=== PATIENT | female | born 1940 | race Caucasian/White ===

== ENCOUNTER 2016-10-31 16:42 | Observation (INO) | payer MEDICARE ==
[2016-10-31 20:33] LABS: ABSOLUTE EOSINOPHILS # (AUTO) 0.3 10^3/uL (0.0-0.6); ABSOLUTE LYMPHOCYTES (AUTO) 3.5 10^3/uL (0.5-4.7); ABSOLUTE MONOCYTES (AUTO) 1.1 10^3/uL (0.1-1.4); ABSOLUTE NEUT (AUTO) 3.1 10^3/uL (1.7-8.2); BASOPHILS % (AUTO) 0.4 % (0-2); EOSINOPHILS % (AUTO) 3.3 % (0-6); HEMATOCRIT 37.6 % (36.0-47.0); HEMOGLOBIN 12.4 g/dL (12.0-15.5); HGB HCT DIFFERENCE -0.4; MEAN CORPUSCULAR HEMOGLOBIN 28.2 pg (27.0-33.4); MEAN CORPUSCULAR HGB CONC 33.1 g/dL (32.0-36.0); MEAN CORPUSCULAR VOLUME 85 fl (80-97); MONOCYTES % (AUTO) 14.1 % (3-13); RED BLOOD COUNT 4.41 10^6/uL (3.72-5.28); SEGMENTED NEUTROPHILS % (AUTO) 38.2 % (42-78); WHITE BLOOD COUNT 8.1 10^3/uL (4.0-10.5)
[2016-10-31] MEDS: MORPHINE SULFATE 10 MG/ML INJ IV PRN (20:34)
[2016-10-31] MEDS: 1/2 NORMAL SALINE 1,000 ML IV PRN (20:35)
[2016-10-31 20:50] LABS: ALANINE AMINOTRANSFERASE 15 U/L (9-52); ALBUMIN 4.5 g/dL (3.5-5.0); ALKALINE PHOSPHATASE 76 U/L (38-126); ANION GAP 9 (5-19); ASPARTATE AMINO TRANSFERASE 15 U/L (14-36); BILIRUBIN,TOTAL 0.7 mg/dL (0.2-1.3); BLOOD UREA NITROGEN 18 mg/dL (7-20); CALCIUM 10.4 mg/dL (8.4-10.2); CARBON DIOXIDE 29 mmol/L (22-30); CHLORIDE 102 mmol/L (98-107); CREATININE RESULT 0.89 mg/dL (0.52-1.25); GLUCOSE 98 mg/dL (75-110); POTASSIUM 4.1 mmol/L (3.6-5.0); SODIUM 139.9 mmol/L (137-145); TOTAL PROTEIN 7.6 g/dL (6.3-8.2)
[2016-10-31 21:31] LABS: THYROID STIMULATING HORMONE 0.27 uIU/mL (0.47-4.68)
[2016-11-01] MEDS: MORPHINE SULFATE 10 MG/ML INJ IV PRN ×4 (00:05→14:39)
[2016-11-01] MEDS: 1/2 NORMAL SALINE 1,000 ML IV PRN ×2 (05:43→05:45)
[2016-11-01] MEDS ORDERED: ONDANSETRON HCL 8 MG TABLET PO PRN (07:31)
[2016-11-01] MEDS ORDERED: LORAZEPAM 1 MG TABLET PO PRN (07:31)
[2016-11-01] MEDS ORDERED: VALSARTAN 80 MG TABLET PO SCH (08:00)
[2016-11-01] MEDS: ENOXAPARIN SODIUM INJ 40 MG/0.4 ML DISP.SYRIN SUBCUT SCH (08:04)
[2016-11-01] MEDS ORDERED: GABAPENTIN 300 MG CAPSULE PO ONE (09:00)
[2016-11-01] MEDS ORDERED: LANSOPRAZOLE 30 MG TAB.RAP.DR PO ONE (09:00)
[2016-11-01] MEDS: CLOPIDOGREL BISULFATE 75 MG TABLET PO SCH (10:15)
[2016-11-01] MEDS: VALSARTAN 40 MG TABLET PO SCH (10:15)
[2016-11-01] MEDS: CARVEDILOL 12.5 MG TABLET PO SCH ×2 (10:17→21:32)
[2016-11-01] MEDS: CITALOPRAM HYDROBROMIDE 20 MG TABLET PO SCH (10:17)
[2016-11-01 10:36] LABS: HEMATOCRIT 36.2 % (36.0-47.0); HEMOGLOBIN 12.1 g/dL (12.0-15.5); HGB HCT DIFFERENCE 0.1; MEAN CORPUSCULAR HEMOGLOBIN 28.5 pg (27.0-33.4); MEAN CORPUSCULAR HGB CONC 33.4 g/dL (32.0-36.0); MEAN CORPUSCULAR VOLUME 85 fl (80-97); RED BLOOD COUNT 4.24 10^6/uL (3.72-5.28); RED CELL DISTRIBUTION WIDTH 14.2 % (11.5-14.0); WHITE BLOOD COUNT 7.4 10^3/uL (4.0-10.5)
[2016-11-01 10:55] LABS: PROTHROMBIN TIME 14.1 SEC (11.4-15.4)
[2016-11-01 10:56] LABS: PARTIAL THROMBOPLASTIN TIME 31.5 SEC (23.5-35.8)
[2016-11-01 11:00] LABS: CREATININE RESULT 0.79 mg/dL (0.52-1.25)
[2016-11-01 13:10] LABS: APPEARANCE,URINE SLIGHTLY-CLOUDY; BILIRUBIN,URINE NEGATIVE (NEGATIVE); GLUCOSE, URINE NEGATIVE (NEGATIVE); KETONES,URINE NEGATIVE (NEGATIVE); LEUKOCYTE ESTERASE,URINE LARGE (NEGATIVE); NITRITE,URINE POSITIVE (NEGATIVE); PROTEIN,URINE NEGATIVE (NEGATIVE); UROBILINOGEN,URINE NEGATIVE mg/dL (<2.0)
--- NOTE | 2016-11-01 13:36 | PDOC CONSULTATION ---
Consultation Consult Date: 11/01/16 Attending physician:: TABBY DELGADILLO Consult reason:: Epigastric pain, history of peptic ulcer in the past History of Present Illness Admission Date/PCP: 10/31/16 22:06 SINA ABDUL MD History of Present Illness: DAVID BELTRAN is a 76 year old female patient is complaining of epigastric pain, started about 5 days ago no new medication denies any NSAIDS use patient had EGD done in the past did have peptic ulcer disease associated with nausea but no vomiting patient denies any melena there is no early satiety no hematemesis denies any coffee ground emesis multiple previous admissions and procedures reviewed Past Medical History Cardiac Medical History: Reports: Congestive Heart Failure, Coronary Artery Disease - CABG 99, STENT 05, Myocardial Infarction - chest pain , Hyperlipidema , Hypertension Pulmonary Medical History: Reports: Chronic Obstructive Pulmonary Disease (COPD ) - [place] PRN , Pneumonia - more than 5 years ago Denies: Asthma, Bronchitis, Tuberculosis Neurological Medical History: Denies: Seizures Endocrine Medical History: Reports: Diabetes Mellitus Type 1, Diabetes Mellitus Type 2 Malignancy Medical History: Reports: Breast Cancer GI Medical History: Reports: Gastroesophageal Reflux Disease Musculoskeltal Medical History: Reports: Arthritis - generalized - right wrist Psychiatric Medical History: Reports: Depression Hematology: Denies: Anemia Past Surgical History Past Surgical History: Reports: Appendectomy, Cholecystectomy, Coronary Artery Bypass Graft, Coronary Stent, Hysterectomy Denies: Pacemaker Social History Smoking Status: Never Smoker Frequency of Alcohol Use: None Hx Recreational Drug Use: No Drugs: None Hx Prescription Drug Abuse: No Family History Family History: Reviewed & Not Pertinent, DM Parental Family History Reviewed: Yes Children Family History Reviewed: Unknown Sibling(s) Family History Reviewed.: Unknown Medication/Allergy Home Medications: Citalopram Hydrobromide [Celexa 20 mg Tablet] 20 mg PO DAILY 11/01/16 Furosemide [Lasix] 40 mg PO DAILY 11/01/16 Gabapentin [Neurontin 300 mg Capsule] 300 mg PO Q8 11/01/16 Linagliptin [Tradjenta] 5 mg PO DAILY 11/01/16 Ondansetron HCl [Zofran 8 mg Tablet] 8 mg PO TIDP PRN 11/01/16 Oxycodone HCl/Acetaminophen [Percocet 10-325 Mg Tablet] 1 tab PO Q4HP PRN Valsartan [Diovan 80 mg Tablet] 80 mg PO DAILY 11/01/16 Allergies/Adverse Reactions: azithromycin [Azithromycin] Allergy (Mild, Verified 05/25/16 08:47) Hives nalbuphine HCl [From Nubain] Allergy (Mild, Verified 05/25/16 08:47) Hives nitrofurantoin macrocrystalline [From Macrodantin] Allergy (Mild, Verified 05/25 08:47) Hives duloxetine HCl [From Cymbalta] Adverse Reaction (Verified 05/25/16 08:47) Change in behavior Review of Systems Constitutional: ABSENT: fever(s), headache(s), night sweats, weakness Eyes: ABSENT: visual disturbances Ears: ABSENT: hearing changes Nose, Mouth, and Throat: ABSENT: mouth pain Cardiovascular: ABSENT: edema, orthropnea Respiratory: ABSENT: dyspnea, hemoptysis Genitourinary: ABSENT: dysuria, hematuria Musculoskeletal: ABSENT: deformity Integumentary: ABSENT: pruritus Neurological: ABSENT: syncope, tingling, vertigo, weakness Psychiatric: ABSENT: homidical ideation, suicidal ideation Endocrine: ABSENT: heat intolerance, polydipsia, polyphagia, polyuria Hematologic/Lymphatic: ABSENT: easy bruising Physical Exam Vital Signs: Temp Pulse Resp BP Pulse Ox 97.6 F 58 L 12 107/51 L 100 11/01/16 11:52 11/01/16 11:52 11/01/16 11:52 11/01/16 11:52 11/01/16 11:52 Intake & Output 10/31/16 11/01/16 11/02/16 06:59 06:59 06:59 Weight 75.5 kg General appearance: PRESENT: no acute distress, well-developed, well-nourished Head exam: PRESENT: atraumatic, normocephalic Eye exam: PRESENT: EOMI, PERRLA. ABSENT: nystagmus, periorbital swelling, scleral icterus Mouth exam: PRESENT: moist Throat exam: ABSENT: tonsillar exudate, tonsillogmegaly Neck exam: ABSENT: meningismus, tenderness, thyromegaly, tracheal deviation Respiratory exam: PRESENT: symmetrical, unlabored. ABSENT: chest wall tenderness, retraction, tachypnea Cardiovascular exam: PRESENT: RRR, +S1, +S2. ABSENT: rubs GI/Abdominal exam: PRESENT: soft, tenderness. ABSENT: Mcelroy's sign, rebound, rigid Extremities exam: ABSENT: joint swelling Musculoskeletal exam: PRESENT: full ROM Neurological exam: PRESENT: oriented to time, oriented to situation, reflexes normal, CN II-XII grossly intact Skin exam: PRESENT: normal color. ABSENT: mottled, pallor, petechiae, urticaria , vesicles Results Laboratory Results: 11/01/16 09:50 11/01/16 09:50 10/31/16 10/31/16 10/31/16 19:50 19:50 19:50 WBC 8.1 RBC 4.41 Hgb 12.4 Hct 37.6 MCV 85 MCH 28.2 MCHC 33.1 RDW 14.0 Plt Count 198 Seg Neutrophils % 38.2 L Lymphocytes % 44.0 Monocytes % 14.1 H Eosinophils % 3.3 Basophils % 0.4 Absolute Neutrophils 3.1 Absolute Lymphocytes 3.5 Absolute Monocytes 1.1 Absolute Eosinophils 0.3 Absolute Basophils 0.0 Sodium 139.9 Potassium 4.1 Chloride 102 Carbon Dioxide 29 Anion Gap 9 BUN 18 Creatinine 0.89 Est GFR ( Amer) > 60 Est GFR (Non-Af Amer) > 60 Glucose 98 Calcium 10.4 H Total Bilirubin 0.7 AST 15 ALT 15 Alkaline Phosphatase 76 Total Protein 7.6 Albumin 4.5 TSH 0.27 L Free T4 1.22 Urine Color Urine Appearance Urine pH Ur Specific [place] Urine Protein Urine Glucose (UA) Urine Ketones Urine Blood Urine Nitrite Ur Leukocyte Esterase Urine WBC (Auto) Urine RBC (Auto) 11/01/16 11/01/16 11/01/16 09:50 09:50 12:45 WBC 7.4 RBC 4.24 Hgb 12.1 Hct 36.2 MCV 85 MCH 28.5 MCHC 33.4 RDW 14.2 H Plt Count 190 Seg Neutrophils % Lymphocytes % Monocytes % Eosinophils % Basophils % Absolute Neutrophils Absolute Lymphocytes Absolute Monocytes Absolute Eosinophils Absolute Basophils Sodium Potassium Chloride Carbon Dioxide Anion Gap BUN Creatinine 0.79 Est GFR ( Amer) > 60 Est GFR (Non-Af Amer) > 60 Glucose Calcium Total Bilirubin AST ALT Alkaline Phosphatase Total Protein Albumin TSH Free T4 Urine Color YELLOW Urine Appearance SLIGHTLY-CLOUDY Urine pH 5.0 Ur Specific [place] 1.010 Urine Protein NEGATIVE Urine Glucose (UA) NEGATIVE Urine Ketones NEGATIVE Urine Blood SMALL H Urine Nitrite POSITIVE H Ur Leukocyte Esterase LARGE H Urine WBC (Auto) 73 Urine RBC (Auto) 0 Impressions: Abdomen/Pelvis CT 10/31/16 00:00 IMPRESSION: No evidence for obstruction. No acute inflammatory changes. Assessment & Plan - Diagnosis (1) Abdominal pain Plan: patient with noted gastric ulcer in the past has not had a follow up to document healing will need repeat EGD she will need Propofol sedation Risks, benefits and alternatives are explained to the patient in detail Further recommendations to follow if negative, she may need repeat colonoscopy - Time Time Spent: 50 to 70 Minutes
[2016-11-01] MEDS: GABAPENTIN 300 MG CAPSULE PO SCH ×2 (14:05→21:32)
--- NOTE | 2016-11-01 18:26 | PDOC H&P ---
History of Present Illness Admission Date/PCP: 10/31/16 22:06 SINA ABDUL MD History of Present Illness: Patient is 76-year-old female with multiple comorbid conditions, she came to the office complaining of abdominal pain, vomiting recently eaten food,she was accompanied to the office by the son,she was admitted directly from the office into the hospital because of concern for dehydration and for evaluation of symptoms. She stated that she has not had any food in couple of days. Past Medical History Cardiac Medical History: Reports: Congestive Heart Failure, Coronary Artery Disease - CABG 99, STENT 05, Myocardial Infarction - chest pain , Hyperlipidema , Hypertension Pulmonary Medical History: Reports: Chronic Obstructive Pulmonary Disease (COPD ) - [place] PRN , Pneumonia - more than 5 years ago Endocrine Medical History: Reports: Diabetes Mellitus Type 2 Malignancy Medical History: Reports: Breast Cancer GI Medical History: Reports: Gastroesophageal Reflux Disease Musculoskeltal Medical History: Reports: Arthritis - generalized - right wrist Psychiatric Medical History: Reports: Depression Past Surgical History Past Surgical History: Reports: Appendectomy, Cholecystectomy, Coronary Artery Bypass Graft, Coronary Stent, Hysterectomy Denies: Pacemaker Social History Smoking Status: Never Smoker Frequency of Alcohol Use: None Hx Recreational Drug Use: No Drugs: None Hx Prescription Drug Abuse: No Family History Family History: Reviewed & Not Pertinent, DM Parental Family History Reviewed: Yes Children Family History Reviewed: Yes Sibling(s) Family History Reviewed.: Yes Medication/Allergy Home Medications: Citalopram Hydrobromide [Celexa 20 mg Tablet] 20 mg PO DAILY 11/01/16 Furosemide [Lasix] 40 mg PO DAILY 11/01/16 Gabapentin [Neurontin 300 mg Capsule] 300 mg PO Q8 11/01/16 Linagliptin [Tradjenta] 5 mg PO DAILY 11/01/16 Ondansetron HCl [Zofran 8 mg Tablet] 8 mg PO TIDP PRN 11/01/16 Oxycodone HCl/Acetaminophen [Percocet 10-325 mg Tablet] 1 tab PO Q4HP PRN Valsartan [Diovan 80 mg Tablet] 80 mg PO DAILY 11/01/16 Allergies/Adverse Reactions: azithromycin [Azithromycin] Allergy (Mild, Verified 05/25/16 08:47) Hives nalbuphine HCl [From Nubain] Allergy (Mild, Verified 05/25/16 08:47) Hives nitrofurantoin macrocrystalline [From Macrodantin] Allergy (Mild, Verified 05/25 08:47) Hives duloxetine HCl [From Cymbalta] Adverse Reaction (Verified 05/25/16 08:47) Change in behavior Review of Systems Constitutional: PRESENT: fatigue Ears: ABSENT: hearing changes Cardiovascular: ABSENT: chest pain, dyspnea on exertion, edema, orthropnea, palpitations Respiratory: ABSENT: cough, hemoptysis Gastrointestinal: PRESENT: abdominal pain, bloating, nausea, vomiting Genitourinary: ABSENT: dysuria, hematuria Musculoskeletal: ABSENT: joint swelling Integumentary: ABSENT: rash, wounds Neurological: PRESENT: confusion, numbness, tingling Psychiatric: PRESENT: anxiety Endocrine: ABSENT: cold intolerance, heat intolerance, menstrual abnormalities, polydipsia, polyuria Hematologic/Lymphatic: ABSENT: easy bleeding, easy bruising, lymphadenopathy Physical Exam Vital Signs: Temp Pulse Resp BP Pulse Ox 97.6 F 58 L 12 107/51 L 100 11/01/16 11:52 11/01/16 14:00 11/01/16 11:52 11/01/16 11:52 11/01/16 11:52 Intake & Output 10/31/16 11/01/16 11/02/16 06:59 06:59 06:59 Intake Total 613 Output Total 500 Balance 113 Weight 75.5 kg General appearance: PRESENT: mild distress Head exam: PRESENT: atraumatic, normocephalic Eye exam: PRESENT: conjunctiva pink, EOMI, PERRLA Mouth exam: PRESENT: dry mucosa Neck exam: PRESENT: full ROM Respiratory exam: PRESENT: clear to auscultation jaimee Cardiovascular exam: PRESENT: RRR, +S1, +S2 GI/Abdominal exam: PRESENT: normal bowel sounds, soft, tenderness Rectal exam: PRESENT: deferred Neurological exam: PRESENT: alert, awake, oriented to person, oriented to place , oriented to time, oriented to situation, CN II-XII grossly intact Psychiatric exam: PRESENT: appropriate affect, normal mood Skin exam: PRESENT: dry, intact, warm Results Laboratory Results: 11/01/16 09:50 11/01/16 09:50 10/31/16 10/31/16 10/31/16 19:50 19:50 19:50 WBC 8.1 RBC 4.41 Hgb 12.4 Hct 37.6 MCV 85 MCH 28.2 MCHC 33.1 RDW 14.0 Plt Count 198 Seg Neutrophils % 38.2 L Lymphocytes % 44.0 Monocytes % 14.1 H Eosinophils % 3.3 Basophils % 0.4 Absolute Neutrophils 3.1 Absolute Lymphocytes 3.5 Absolute Monocytes 1.1 Absolute Eosinophils 0.3 Absolute Basophils 0.0 Sodium 139.9 Potassium 4.1 Chloride 102 Carbon Dioxide 29 Anion Gap 9 BUN 18 Creatinine 0.89 Est GFR ( Amer) > 60 Est GFR (Non-Af Amer) > 60 Glucose 98 Calcium 10.4 H Total Bilirubin 0.7 AST 15 ALT 15 Alkaline Phosphatase 76 Total Protein 7.6 Albumin 4.5 TSH 0.27 L Free T4 1.22 Urine Color Urine Appearance Urine pH Ur Specific [place] Urine Protein Urine Glucose (UA) Urine Ketones Urine Blood Urine Nitrite Ur Leukocyte Esterase Urine WBC (Auto) Urine RBC (Auto) 11/01/16 11/01/16 11/01/16 09:50 09:50 12:45 WBC 7.4 RBC 4.24 Hgb 12.1 Hct 36.2 MCV 85 MCH 28.5 MCHC 33.4 RDW 14.2 H Plt Count 190 Seg Neutrophils % Lymphocytes % Monocytes % Eosinophils % Basophils % Absolute Neutrophils Absolute Lymphocytes Absolute Monocytes Absolute Eosinophils Absolute Basophils Sodium Potassium Chloride Carbon Dioxide Anion Gap BUN Creatinine 0.79 Est GFR ( Amer) > 60 Est GFR (Non-Af Amer) > 60 Glucose Calcium Total Bilirubin AST ALT Alkaline Phosphatase Total Protein Albumin TSH Free T4 Urine Color YELLOW Urine Appearance SLIGHTLY-CLOUDY Urine pH 5.0 Ur Specific [place] 1.010 Urine Protein NEGATIVE Urine Glucose (UA) NEGATIVE Urine Ketones NEGATIVE Urine Blood SMALL H Urine Nitrite POSITIVE H Ur Leukocyte Esterase LARGE H Urine WBC (Auto) 73 Urine RBC (Auto) 0 Impressions: Abdomen/Pelvis CT 10/31/16 00:00 IMPRESSION: No evidence for obstruction. No acute inflammatory changes. Assessment & Plan - Diagnosis (1) Abdominal pain Qualifiers: Abdominal location: epigastric Qualified Code(s): R10.13 - Epigastric pain Is this a current diagnosis for this admission?: YesPlan: The differential diagnosis is quite long pain is in the upper abdomen and it tends to radiate to involve the whole abdomen (2) Coronary artery disease Qualifiers: Coronary Disease-Associated Artery/Lesion type: [place] artery [place] vs. transplanted heart: [place] heart Associated angina: without angina Qualified Code(s): I25.10 - Atherosclerotic heart disease of [place] coronary artery without angina pectoris Is this a current diagnosis for this admission?: Yes (3) Diabetes mellitus Qualifiers: Diabetes mellitus type: type 2 Diabetes mellitus complication status: with neurologic complications Diabetes mellitus complication detail: with polyneuropathy Diabetes mellitus custodial insulin use: with intermediate school teacher use Qualified Code(s): E11.42 - Type 2 diabetes mellitus with diabetic polyneuropathy; Z79.4 - alf (current) use of insulin Is this a current diagnosis for this admission?: Yes (4) Intractable vomiting Qualifiers: Vomiting type: unspecified Nausea presence: with nausea Qualified Code(s): R11.2 - Nausea with vomiting, unspecified Is this a current diagnosis for this admission?: Yes
--- NOTE | 2016-11-01 18:57 | PDOC PROGRESS REPORT ---
Subjective Progress Note for:: 11/01/16 Subjective:: Patient was seen by the bedside she continues to complains of abdominal pain, she said the morphine is not effective, she was seen by Dr. abbott medication tech Physical Exam Vital Signs: Temp Pulse Resp BP Pulse Ox 97.6 F 58 L 12 107/51 L 100 11/01/16 11:52 11/01/16 14:00 11/01/16 11:52 11/01/16 11:52 11/01/16 11:52 Intake & Output 10/31/16 11/01/16 11/02/16 06:59 06:59 06:59 Intake Total 613 Output Total 500 Balance 113 Weight 75.5 kg General appearance: PRESENT: mild distress Eye exam: PRESENT: PERRLA Cardiovascular exam: PRESENT: +S1, +S2 GI/Abdominal exam: PRESENT: tenderness Results Laboratory Results: 11/01/16 09:50 11/01/16 09:50 10/31/16 10/31/16 10/31/16 19:50 19:50 19:50 WBC 8.1 RBC 4.41 Hgb 12.4 Hct 37.6 MCV 85 MCH 28.2 MCHC 33.1 RDW 14.0 Plt Count 198 Seg Neutrophils % 38.2 L Lymphocytes % 44.0 Monocytes % 14.1 H Eosinophils % 3.3 Basophils % 0.4 Absolute Neutrophils 3.1 Absolute Lymphocytes 3.5 Absolute Monocytes 1.1 Absolute Eosinophils 0.3 Absolute Basophils 0.0 Sodium 139.9 Potassium 4.1 Chloride 102 Carbon Dioxide 29 Anion Gap 9 BUN 18 Creatinine 0.89 Est GFR ( Amer) > 60 Est GFR (Non-Af Amer) > 60 Glucose 98 Calcium 10.4 H Total Bilirubin 0.7 AST 15 ALT 15 Alkaline Phosphatase 76 Total Protein 7.6 Albumin 4.5 TSH 0.27 L Free T4 1.22 Urine Color Urine Appearance Urine pH Ur Specific [place] Urine Protein Urine Glucose (UA) Urine Ketones Urine Blood Urine Nitrite Ur Leukocyte Esterase Urine WBC (Auto) Urine RBC (Auto) 11/01/16 11/01/16 11/01/16 09:50 09:50 12:45 WBC 7.4 RBC 4.24 Hgb 12.1 Hct 36.2 MCV 85 MCH 28.5 MCHC 33.4 RDW 14.2 H Plt Count 190 Seg Neutrophils % Lymphocytes % Monocytes % Eosinophils % Basophils % Absolute Neutrophils Absolute Lymphocytes Absolute Monocytes Absolute Eosinophils Absolute Basophils Sodium Potassium Chloride Carbon Dioxide Anion Gap BUN Creatinine 0.79 Est GFR ( Amer) > 60 Est GFR (Non-Af Amer) > 60 Glucose Calcium Total Bilirubin AST ALT Alkaline Phosphatase Total Protein Albumin TSH Free T4 Urine Color YELLOW Urine Appearance SLIGHTLY-CLOUDY Urine pH 5.0 Ur Specific [place] 1.010 Urine Protein NEGATIVE Urine Glucose (UA) NEGATIVE Urine Ketones NEGATIVE Urine Blood SMALL H Urine Nitrite POSITIVE H Ur Leukocyte Esterase LARGE H Urine WBC (Auto) 73 Urine RBC (Auto) 0 Impressions: Abdomen/Pelvis CT 10/31/16 00:00 IMPRESSION: No evidence for obstruction. No acute inflammatory changes. Assessment & Plan - Diagnosis (1) Abdominal pain Qualifiers: Abdominal location: epigastric Qualified Code(s): R10.13 - Epigastric pain Is this a current diagnosis for this admission?: Yes (2) Coronary artery disease Qualifiers: Coronary Disease-Associated Artery/Lesion type: [place] artery [place] vs. transplanted heart: [place] heart Associated angina: without angina Qualified Code(s): I25.10 - Atherosclerotic heart disease of [place] coronary artery without angina pectoris Is this a current diagnosis for this admission?: Yes (3) Diabetes mellitus Qualifiers: Diabetes mellitus type: type 2 Diabetes mellitus complication status: with neurologic complications Diabetes mellitus complication detail: with polyneuropathy Diabetes mellitus terminologist insulin use: with terminologist use Qualified Code(s): E11.42 - Type 2 diabetes mellitus with diabetic polyneuropathy; Z79.4 - terminologist (current) use of insulin Is this a current diagnosis for this admission?: Yes (4) Intractable vomiting Qualifiers: Vomiting type: unspecified Nausea presence: with nausea Qualified Code(s): R11.2 - Nausea with vomiting, unspecified Is this a current diagnosis for this admission?: Yes
[2016-11-01] MEDS: HYDROMORPHONE HCL INJ/PF 2 MG/ML AMPULE IV PRN (20:09)
[2016-11-02] MEDS: HYDROMORPHONE HCL INJ/PF 2 MG/ML AMPULE IV PRN ×7 (01:45→21:54)
[2016-11-02] MEDS: GABAPENTIN 300 MG CAPSULE PO SCH ×3 (05:36→21:54)
[2016-11-02] MEDS: LANSOPRAZOLE 30 MG TAB.RAP.DR PO SCH (05:36)
[2016-11-02] MEDS ORDERED: PROPOFOL INJ 200 MG/20 ML VIAL IV ONE (09:29)
[2016-11-02] MEDS: 1/2 NORMAL SALINE 1,000 ML IV PRN (09:29)
[2016-11-02] MEDS: ENOXAPARIN SODIUM INJ 40 MG/0.4 ML DISP.SYRIN SUBCUT SCH (09:30)
[2016-11-02] MEDS ORDERED: DIPHENHYDRAMINE HCL 50 MG/ML VIAL IV PRN (09:59)
[2016-11-02] MEDS ORDERED: FENTANYL CITRATE INJ/PF 100 MCG/2 ML AMPUL IV PRN ×2 (09:59)
[2016-11-02] MEDS ORDERED: PROMETHAZINE HCL INJ 25 MG/1 ML VIAL IV PRN (09:59)
[2016-11-02] MEDS: CLOPIDOGREL BISULFATE 75 MG TABLET PO SCH (10:11)
[2016-11-02] MEDS: VALSARTAN 40 MG TABLET PO SCH (10:11)
[2016-11-02] MEDS: CITALOPRAM HYDROBROMIDE 20 MG TABLET PO SCH (10:11)
[2016-11-02] MEDS: CARVEDILOL 12.5 MG TABLET PO SCH ×2 (10:11→21:56)
--- NOTE | 2016-11-02 10:30 | Operative Report ---
Operative Report DATE OF SURGERY: 11/02/16 Operative Report: The risks benefits and alternatives of the procedure explained to the patient in detail and informed consent is obtained that GIF Olympus video scope was inserted into the patient's mouth and hypopharynx the esophagus is identified intubated and insufflated the scope was then advanced through the esophagus stomach and duodenum retroflexion maneuver is done the esophagus stomach and first and second portions of the duodenum examined PREOPERATIVE DIAGNOSIS: Abdominal pain POSTOPERATIVE DIAGNOSIS: Gastritis status post biopsy OPERATION: EGD with biopsy SURGEON: TABBY DELGADILLO ANESTHESIA: LMAC TISSUE REMOVED OR ALTERED: Gastric specimens rule out Helicobacter pylori COMPLICATIONS: None. ESTIMATED BLOOD LOSS: none. INTRAOPERATIVE FINDINGS: None. PROCEDURE: Patient tolerated the procedure well. No immediate postprocedure complications are noted. Patient sent back to her room in good condition. Resume previous diet Resume previous activity level ,continue PPI therapy Follow-up on biopsy
[2016-11-02] MEDS: NORMAL SALINE 1000 ML 1,000 ML IV PRN (18:33)
--- NOTE | 2016-11-02 18:50 | PDOC PROGRESS REPORT ---
Subjective Progress Note for:: 11/02/16 Subjective:: Patient continues to have abdominal pain, upper endoscopy done today and it showed gastritis Physical Exam Vital Signs: Temp Pulse Resp BP Pulse Ox 98.8 F 53 L 18 103/46 L 97 11/02/16 12:10 11/02/16 14:00 11/02/16 12:10 11/02/16 12:10 11/02/16 12:10 Intake & Output 11/01/16 11/02/16 11/03/16 06:59 06:59 06:59 Intake Total 1383 3350 Output Total 920 Balance 463 3350 Weight 75.5 kg 78.2 kg General appearance: PRESENT: no acute distress Eye exam: PRESENT: PERRLA Respiratory exam: PRESENT: clear to auscultation jaimee Cardiovascular exam: PRESENT: +S1, +S2 GI/Abdominal exam: PRESENT: tenderness Neurological exam: PRESENT: alert, CN II-XII grossly intact Results Laboratory Results: 11/01/16 09:50 11/01/16 09:50 Impressions: Abdomen/Pelvis CT 10/31/16 00:00 IMPRESSION: No evidence for obstruction. No acute inflammatory changes. Assessment & Plan - Diagnosis (1) Abdominal pain Qualifiers: Abdominal location: epigastric Qualified Code(s): R10.13 - Epigastric pain Is this a current diagnosis for this admission?: YesPlan: CTA of the abdomen is ordered to rule out ischemic bowel (2) Coronary artery disease Qualifiers: Coronary Disease-Associated Artery/Lesion type: [place] artery [place] vs. 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
[2016-11-02 19:58] LABS: CREATINE KINASE MB 0.48 ng/mL (<4.55); TROPONIN I < 0.012 ng/mL
[2016-11-03] MEDS: HYDROMORPHONE HCL INJ/PF 2 MG/ML AMPULE IV PRN ×6 (00:56→22:46)
[2016-11-03] MEDS: LANSOPRAZOLE 30 MG TAB.RAP.DR PO SCH (05:34)
[2016-11-03] MEDS: GABAPENTIN 300 MG CAPSULE PO SCH ×3 (05:34→21:13)
[2016-11-03] MEDS: ENOXAPARIN SODIUM INJ 40 MG/0.4 ML DISP.SYRIN SUBCUT SCH (08:09)
[2016-11-03 08:43] LABS: CREATINE KINASE MB 0.46 ng/mL (<4.55)
[2016-11-03 08:50] LABS: TROPONIN I < 0.012 ng/mL
[2016-11-03] MEDS: CARVEDILOL 12.5 MG TABLET PO SCH ×2 (09:21→21:17)
[2016-11-03] MEDS: CLOPIDOGREL BISULFATE 75 MG TABLET PO SCH (09:21)
[2016-11-03] MEDS: CITALOPRAM HYDROBROMIDE 20 MG TABLET PO SCH (09:21)
[2016-11-03] MEDS: VALSARTAN 40 MG TABLET PO SCH (09:22)
[2016-11-03] MEDS: NORMAL SALINE 1000 ML 1,000 ML IV PRN (10:02)
[2016-11-03] MEDS ORDERED: LORAZEPAM 1 MG TABLET PO PRN (13:29)
[2016-11-03] MEDS ORDERED: ONDANSETRON HCL 8 MG TABLET PO PRN (13:33)
--- NOTE | 2016-11-03 13:53 | PDOC PROGRESS REPORT ---
Subjective Progress Note for:: 11/03/16 Subjective:: patient underwent EGD yesterday and has had multiple procedures in the past however no objective finding patient is undergoing CTA to rule out mesenteric ischemia patient denies any nausea and vomiting and has periods where she does not have any discomfort this is somewhat unusual for mesenteric ischemia Mesenteric ischemia is also associated with significant weight loss patient denies any blood in her stools biopsies are negative Physical Exam Vital Signs: Temp Pulse Resp BP Pulse Ox 98.0 F 52 L 16 102/48 L 100 11/03/16 12:40 11/03/16 12:40 11/03/16 12:40 11/03/16 12:40 11/03/16 12:40 Intake & Output 11/02/16 11/03/16 11/04/16 06:59 06:59 06:59 Intake Total 1383 4650 1038 Output Total 920 300 Balance 463 4350 1038 Weight 78.2 kg 76.8 kg General appearance: PRESENT: no acute distress, well-developed, well-nourished Head exam: PRESENT: atraumatic, normocephalic Eye exam: PRESENT: EOMI, PERRLA. ABSENT: nystagmus, periorbital swelling, scleral icterus Mouth exam: PRESENT: moist Throat exam: ABSENT: tonsillar exudate Neck exam: ABSENT: meningismus, tenderness, thyromegaly Respiratory exam: PRESENT: symmetrical, unlabored. ABSENT: chest wall tenderness, tachypnea Cardiovascular exam: PRESENT: RRR, +S1, +S2. ABSENT: rubs Pulses: PRESENT: normal carotid pulses GI/Abdominal exam: PRESENT: normal bowel sounds, soft. ABSENT: Mcelroy's sign, rebound, rigid, tenderness Musculoskeletal exam: PRESENT: full ROM Neurological exam: PRESENT: oriented to time, oriented to situation, reflexes normal, CN II-XII grossly intact Skin exam: PRESENT: normal color. ABSENT: mottled, pallor, petechiae, urticaria , vesicles Results Laboratory Results: 11/01/16 09:50 11/01/16 09:50 11/02/16 11/02/16 11/03/16 19:20 19:20 07:20 Creatine Kinase 31 35 CK-MB (CK-2) 0.48 Troponin I < 0.012 11/03/16 07:55 Creatine Kinase CK-MB (CK-2) 0.46 Troponin I < 0.012 Impressions: Abdomen/Pelvis CT 10/31/16 00:00 IMPRESSION: No evidence for obstruction. No acute inflammatory changes. Chest/Abdomen CTA 11/03/16 00:00 IMPRESSION: NO ABDOMINAL AORTIC ANEURYSM, DISSECTION OR SIGNIFICANT STENOSIS. Atherosclerosis. Otherwise no significant CTA abnormality of the abdomen. Assessment & Plan - Diagnosis (1) Abdominal pain Qualifiers: Abdominal location: epigastric Qualified Code(s): R10.13 - Epigastric pain Is this a current diagnosis for this admission?: Yes (2) Abdominal pain Plan: etiology is unclear CTA is pending patient has had multiple procedures done in the past patient does have risk factors of ischemic disease follow up when results are available - Time Time Spent with patient: 15-24 minutes
[2016-11-03 17:52] LABS: CREATINE KINASE MB 0.54 ng/mL (<4.55)
[2016-11-03 17:53] LABS: TROPONIN I < 0.012 ng/mL
--- NOTE | 2016-11-03 20:17 | PDOC PROGRESS REPORT ---
Subjective Progress Note for:: 11/03/16 Subjective:: Patient was seen by the bedside and she kept complaining of upper abdominal pain , or the evaluations including CAT scan of the abdomen CTA of the abdomen has been negative she also had upper endoscopy and was negative, the cardiac enzymes are negative Physical Exam Vital Signs: Temp Pulse Resp BP Pulse Ox 98 F 73 19 148/66 H 97 11/03/16 20:00 11/03/16 20:00 11/03/16 20:00 11/03/16 20:00 11/03/16 20:00 Intake & Output 11/02/16 11/03/16 11/04/16 06:59 06:59 06:59 Intake Total 1383 4650 1788 Output Total 920 300 500 Balance 463 4350 1288 Weight 78.2 kg 76.8 kg General appearance: PRESENT: no acute distress Eye exam: PRESENT: PERRLA Respiratory exam: PRESENT: decreased breath sounds Cardiovascular exam: PRESENT: +S1, +S2 GI/Abdominal exam: PRESENT: soft, tenderness Neurological exam: PRESENT: alert, CN II-XII grossly intact Results Laboratory Results: 11/01/16 09:50 11/01/16 09:50 11/02/16 11/02/16 11/03/16 19:20 19:20 07:20 Creatine Kinase 31 35 CK-MB (CK-2) 0.48 Troponin I < 0.012 11/03/16 11/03/16 11/03/16 07:55 15:15 15:15 Creatine Kinase 39 CK-MB (CK-2) 0.46 0.54 Troponin I < 0.012 < 0.012 Impressions: Abdomen/Pelvis CT 10/31/16 00:00 IMPRESSION: No evidence for obstruction. No acute inflammatory changes. Chest/Abdomen CTA 11/03/16 00:00 IMPRESSION: NO ABDOMINAL AORTIC ANEURYSM, DISSECTION OR SIGNIFICANT STENOSIS. Atherosclerosis. Otherwise no significant CTA abnormality of the abdomen. Assessment & Plan - Diagnosis (1) Abdominal pain Qualifiers: Abdominal location: epigastric Qualified Code(s): R10.13 - Epigastric pain Is this a current diagnosis for this admission?: YesPlan: She has multiple comorbid conditions, she has upper abdominal pain, CT scans and endoscopies are negative, she was admitted for observation, she will be kept one more night and probably discharge home in the morning (2) Coronary artery disease Qualifiers: Coronary Disease-Associated Artery/Lesion type: [place] artery [place] vs. transplanted heart: [place] heart Associated angina: without angina Qualified Code(s): I25.10 - Atherosclerotic heart disease of [place] coronary artery without angina pectoris Is this a current diagnosis for this admission?: Yes (3) Diabetes mellitus Qualifiers: Diabetes mellitus type: type 2 Diabetes mellitus complication status: with neurologic complications Diabetes mellitus complication detail: with polyneuropathy Diabetes mellitus rn long term care insulin use: with fdc use Qualified Code(s): E11.42 - Type 2 diabetes mellitus with diabetic polyneuropathy; Z79.4 - long term care pharmacist (current) use of insulin Is this a current diagnosis for this admission?: Yes (4) Intractable vomiting Qualifiers: Vomiting type: unspecified Nausea presence: with nausea Qualified Code(s): R11.2 - Nausea with vomiting, unspecified Is this a current diagnosis for this admission?: Yes
[2016-11-04] MEDS: NORMAL SALINE 1000 ML 1,000 ML IV PRN (03:00)
[2016-11-04] MEDS: HYDROMORPHONE HCL INJ/PF 2 MG/ML AMPULE IV PRN ×5 (04:36→17:43)
[2016-11-04] MEDS: LANSOPRAZOLE 30 MG TAB.RAP.DR PO SCH (05:22)
[2016-11-04] MEDS: GABAPENTIN 300 MG CAPSULE PO SCH ×2 (05:22→14:37)
[2016-11-04] MEDS: ENOXAPARIN SODIUM INJ 40 MG/0.4 ML DISP.SYRIN SUBCUT SCH (07:55)
[2016-11-04] MEDS: VALSARTAN 40 MG TABLET PO SCH (09:25)
[2016-11-04] MEDS: CITALOPRAM HYDROBROMIDE 20 MG TABLET PO SCH (09:26)
[2016-11-04] MEDS: CLOPIDOGREL BISULFATE 75 MG TABLET PO SCH (09:26)
[2016-11-04] MEDS: CARVEDILOL 12.5 MG TABLET PO SCH (09:26)
--- NOTE | 2016-11-04 11:07 | PDOC PROGRESS REPORT ---
Subjective Progress Note for:: 11/04/16 Subjective:: patient underwent CT scan which was negative. patient does have chronic pain, going on for multiple years intermittent has been admitted multiple times with multiple test being done recent EGD is negative biopsies are negative CT scan done not show any vascular pathology Physical Exam Vital Signs: Temp Pulse Resp BP Pulse Ox 97.6 F 67 18 140/67 H 98 11/04/16 07:18 11/04/16 07:18 11/04/16 07:18 11/04/16 07:18 11/04/16 07:18 Intake & Output 11/03/16 11/04/16 11/05/16 06:59 06:59 06:59 Intake Total 4650 2688 1050 Output Total 300 1000 Balance 4350 1688 1050 Weight 76.8 kg 77.7 kg General appearance: PRESENT: mild distress, well-developed, well-nourished Head exam: PRESENT: atraumatic, normocephalic Eye exam: PRESENT: EOMI, PERRLA. ABSENT: conjunctival injection, periorbital swelling Mouth exam: PRESENT: moist, neck supple, tongue midline Throat exam: ABSENT: tonsillar erythema, tonsillar exudate Neck exam: ABSENT: carotid bruit, meningismus, tenderness Respiratory exam: PRESENT: clear to auscultation jaimee. ABSENT: accessory muscle use, chest wall tenderness, crackles Cardiovascular exam: PRESENT: RRR, +S1, +S2. ABSENT: gallop, rubs Pulses: PRESENT: normal carotid pulses GI/Abdominal exam: ABSENT: ascites, distended, Mcelroy's sign, rebound Extremities exam: PRESENT: full ROM. ABSENT: calf tenderness, clubbing, joint swelling Neurological exam: PRESENT: alert, awake, oriented to person, oriented to place , oriented to time, CN II-XII grossly intact Psychiatric exam: ABSENT: agitated Skin exam: PRESENT: normal color. ABSENT: mottled, pallor, petechiae, vesicles Results Laboratory Results: 11/01/16 09:50 11/01/16 09:50 11/02/16 11/02/16 11/03/16 19:20 19:20 07:20 Creatine Kinase 31 35 CK-MB (CK-2) 0.48 Troponin I < 0.012 11/03/16 11/03/16 11/03/16 07:55 15:15 15:15 Creatine Kinase 39 CK-MB (CK-2) 0.46 0.54 Troponin I < 0.012 < 0.012 Impressions: Abdomen/Pelvis CT 10/31/16 00:00 IMPRESSION: No evidence for obstruction. No acute inflammatory changes. Chest/Abdomen CTA 11/03/16 00:00 IMPRESSION: NO ABDOMINAL AORTIC ANEURYSM, DISSECTION OR SIGNIFICANT STENOSIS. Atherosclerosis. Otherwise no significant CTA abnormality of the abdomen. Assessment & Plan - Diagnosis (1) Abdominal pain Qualifiers: Abdominal location: epigastric Qualified Code(s): R10.13 - Epigastric pain Is this a current diagnosis for this admission?: YesPlan: chronic pain syndrome recent EGD and CT scan for possible medial arcuate syndrome is negative if no other significant issues, possibly can be discharged no evidence of chronic pancreatitis on recent CT scan can follow up as outpatient - Time Time Spent with patient: 15-24 minutes
[2016-11-04 19:42] VITALS: BP 106/45
--- NOTE | 2016-11-04 19:55 | PDOC DISCHARGE SUMMARY ---
General - Admit/Disc Date/PCP Admission Date/Primary Care Provider: 10/31/16 22:06 SINA ABDUL MD Discharge Date: 11/04/16 - Discharge Diagnosis (1) Abdominal pain Is this a current diagnosis for this admission?: YesSummary: The abdominal pain is probably due to neurogenic pain/gastroparesis (2) Coronary artery disease Is this a current diagnosis for this admission?: Yes (3) Diabetes mellitus Is this a current diagnosis for this admission?: Yes (4) Intractable vomiting Is this a current diagnosis for this admission?: Yes - Additional Information Resuscitation Status: Full Code Discharge Activity: Activity As Tolerated Home Medications: Citalopram Hydrobromide [Celexa 20 mg Tablet] 20 mg PO DAILY 11/01/16 Furosemide [Lasix] 40 mg PO DAILY 11/01/16 Gabapentin [Neurontin 300 mg Capsule] 300 mg PO Q8 11/01/16 Linagliptin [Tradjenta] 5 mg PO DAILY 11/01/16 Ondansetron HCl [Zofran 8 mg Tablet] 8 mg PO TIDP PRN 11/01/16 Oxycodone HCl/Acetaminophen [Percocet 10-325 mg Tablet] 1 tab PO Q4HP PRN Valsartan [Diovan 80 mg Tablet] 80 mg PO DAILY 11/01/16 History of Present Illness History of Present Illness: Patient is 76-year-old female with multiple comorbid conditions, she came to the office complaining of abdominal pain, vomiting recently eaten food,she was accompanied to the office by the son,she was admitted directly from the office into the hospital because of concern for dehydration and for evaluation of symptoms. She stated that she has not had any food in couple of days. Hospital Course Hospital Course: Patient was admitted because of upper abdominal pain associated with vomiting and poor intake, she was seen by the surgical forceps fabricator and she underwent EGD he showed nonspecific gastritis patient continues to have pain in the abdomen CTA of the abdomen was done and it was negative for any vascular disease. A CT scan of the abdomen and pelvis was done and it was negative for any acute pathology. Pain control was achieved with intravenous Dilaudid Physical Exam Vital Signs: Temp Pulse Resp BP Pulse Ox 98.1 F 60 18 106/45 L 100 11/04/16 19:37 11/04/16 19:37 11/04/16 19:37 11/04/16 19:37 11/04/16 19:37 Intake & Output 11/03/16 11/04/16 11/05/16 06:59 06:59 06:59 Intake Total 4650 2688 2049 Output Total 300 1000 Balance 4350 1688 2049 Weight 76.8 kg 77.7 kg General appearance: PRESENT: no acute distress, well-developed, well-nourished Head exam: PRESENT: atraumatic, normocephalic Eye exam: PRESENT: conjunctiva pink, EOMI, PERRLA Ear exam: PRESENT: normal external ear exam Mouth exam: PRESENT: moist, tongue midline Neck exam: PRESENT: full ROM Respiratory exam: PRESENT: clear to auscultation jaimee Cardiovascular exam: PRESENT: RRR, +S1, +S2 Pulses: PRESENT: normal dorsalis pedis pul, +2 pedal pulses bilateral Vascular exam: PRESENT: normal capillary refill GI/Abdominal exam: PRESENT: normal bowel sounds, soft Rectal exam: PRESENT: deferred Neurological exam: PRESENT: alert, awake, oriented to person, oriented to place , oriented to time, oriented to situation, CN II-XII grossly intact Psychiatric exam: PRESENT: appropriate affect, normal mood Skin exam: PRESENT: dry, intact, warm Results Laboratory Results: 11/01/16 09:50 11/01/16 09:50 11/02/16 11/02/16 11/03/16 19:20 19:20 07:20 Creatine Kinase 31 35 CK-MB (CK-2) 0.48 Troponin I < 0.012 11/03/16 11/03/16 11/03/16 07:55 15:15 15:15 Creatine Kinase 39 CK-MB (CK-2) 0.46 0.54 Troponin I < 0.012 < 0.012 Impressions: Abdomen/Pelvis CT 10/31/16 00:00 IMPRESSION: No evidence for obstruction. No acute inflammatory changes. Chest/Abdomen CTA 11/03/16 00:00 IMPRESSION: NO ABDOMINAL AORTIC ANEURYSM, DISSECTION OR SIGNIFICANT STENOSIS. Atherosclerosis. Otherwise no significant CTA abnormality of the abdomen.
== END 2016-11-04 19:42 | disposition home or self-care (01) ==
LOC: 4S 16:42 → UNDOADMIN 16:42 → INTOOBSV 22:06 → 4S 22:06
PROVIDERS: ADMIT Internal Medicine; ATTEND Internal Medicine
PROC: 0DB68ZX Excision of Stomach, Via Natural or Artificial Opening Endoscopic, Diagnostic (ICD-10-PCS; principal; 2016-11-02 10:00)
DX: R10.13 Epigastric pain (principal); R11.10 Vomiting, unspecified; K29.50 Unspecified chronic gastritis without bleeding; I25.10 Atherosclerotic heart disease of native coronary artery without angina pectoris; I25.2 Old myocardial infarction; I11.0 Hypertensive heart disease with heart failure; I50.9 Heart failure, unspecified; E11.42 Type 2 diabetes mellitus with diabetic polyneuropathy; Z79.4 Long term (current) use of insulin; Z95.1 Presence of aortocoronary bypass graft; Z85.3 Personal history of malignant neoplasm of breast
CPT/HCPCS: 43239; 36415 ×4; 84439; 82553 ×2; 82962; 82550 ×2; 82565; 84443; 85025; 85027; 85610; 85730; 80076; 80048; 81001; 84484 ×2; 88342 ×2; 88305 ×2; 74176; 74175; G0378 ×3; G0379; A9270 ×20; J2270 ×2; J1650 ×4; J1170 ×4; J7030 ×3; J2704; 740

== ENCOUNTER → 2018-03-26 | Outpatient (CLI) | payer MEDICARE ==
--- NOTE | 2018-03-27 13:24 | WOMENS IMAGING REPORT ---
EXAM DESCRIPTION: 3D SCREENING MAMMO LEFT COMPLETED DATE/TIME: 03/26/2018 2:16 pm REASON FOR STUDY: SCREENING MAMMO Z12.31 ENCNTR SCREEN MAMMOGRAM FOR MALIGNANT NEOPLASM OF SCOUT COMPARISON: 2015 TECHNIQUE: Standard craniocaudal and mediolateral oblique views of the breast recorded using digital acquisition and breast tomosynthesis. LIMITATIONS: None. FINDINGS: BREAST: left No masses, calcifications or architectural distortion. No areas of suspicion. Read with the assistance of CAD. .[facility] - R2 Cenova Version 1.3 .[facility] - R2 Cenova Version 1.3 .[facility] - R2 Cenova Version 2.4 .[facility] [place] R2 Cenova Version 2.4 .[facility] - R2 Hand Plug Shaper Version 9.2 IMPRESSION: NORMAL MAMMOGRAM. BIRADS 1. BREAST DENSITY: b. There are scattered areas of fibroglandular density. BIRAD: 1 Negative RECOMMENDATION: RECOMMENDATION: ROUTINE SCREENING. COMMENT: The patient has been notified of the results by letter per SA requirements. Additional no tification policies are in place for contacting patient with suspicious or incomplete findings. Quality ID #[id number]: The [employer] recommends an annual screening mammogram for women aged 40 years or over. This facility utilizes a reminder system to ensure that all patients receive reminder letters, and/or direct phone calls for appointments. This includes reminders for routine scr eening mammograms, diagnostic mammograms, or other Breast Imaging Interventions when appropriate. Th is patient will be placed in the appropriate reminder system. The [employer] (ACR) has developed recommendations for screening MRI of the breast s in certain patient populations, to be used in conjunction with mammography. Breast MRI surveillance may be appropriate for women with more than 20% lifetime risk of developing breast cancer as determi huyen by genetic testing, significant family history of the disease, or history of mantle radiation for Hodgkins Disease. ACR Practice Guidelines 2008. DBT Technology DBT is a type of tomographic mammography. With conventional mammography, overlapping breast tissue ma y make lesions difficult to detect, even with good compression. DBT uses an x-ray tube that rotates a round the breast, taking images at different angles. These images are then combined to create thin sl ices of the breast that the radiologist can view as a 3D reconstruction. The TheInfoPro unit can perform full-field digital mammograms (2D imaging); or DBT (3D imaging); or both, in a combination mode that quickly performs both the mammogram and the tomosynthesis scan while the breast is still compressed. PQRS 6045F: Fluoroscopic imaging is not utilized for breast tomosynthesis. TECHNICAL DOCUMENTATION: FINDING NUMBER: (1) ASSESSMENT: (1) JOB ID: [id number] [employer]- All Rights Reserved Reading location - IP/workstation name: [email or web address]
== END ==
LOC: WI 13:40
PROVIDERS: ATTEND Internal Medicine
DX: Z12.31 Encounter for screening mammogram for malignant neoplasm of breast (principal)

== ENCOUNTER 2018-06-06 13:43 | Emergency (ER) | payer MEDICARE ==
[2018-06-06] MEDS ORDERED: HYDROCODONE/ACETAMINOPHEN 5-325 MG TABLET PO ONE (13:55)
--- NOTE | 2018-06-06 13:55 | ER Document Report ---
ED Medical Screen (RME) - General Chief Complaint: Arm Pain Stated Complaint: FALL/ARM PAIN Time Seen by Provider: 06/06/18 13:54 Notes: 77 years old female presents today with left forearm and wrist deformity, after a fall just prior to arrival. She slipped in her kitchen. TRAVEL OUTSIDE OF THE [place] IN LAST 30 DAYS: No - Related Data Allergies/Adverse Reactions: azithromycin [Azithromycin] Allergy (Mild, Verified 06/06/18 13:47) Hives nalbuphine HCl [From Nubain] Allergy (Mild, Verified 06/06/18 13:47) Hives nitrofurantoin macrocrystalline [From Macrodantin] Allergy (Mild, Verified 06/06 13:47) Hives duloxetine HCl [From Cymbalta] Adverse Reaction (Verified 06/06/18 13:47) Change in behavior Past Medical History - Past Medical History Cardiac Medical History: Reports: Hx Congestive Heart Failure, Hx Coronary Artery Disease - CABG 99, STENT 05, Hx Heart Attack - chest pain , Hx Hypercholesterolemia, Hx Hypertension Pulmonary Medical History: Reports: Hx COPD - [place] PRN , Hx Pneumonia - more than 5 years ago Denies: Hx Asthma, Hx Bronchitis, Hx Tuberculosis Neurological Medical History: Denies: Hx Cerebrovascular Accident, Hx Seizures Endocrine Medical History: Reports: Hx Diabetes Mellitus Type 1, Hx Diabetes Mellitus Type 2 Malignancy Medical History: Reports: Hx Breast Cancer GI Medical History: Reports: Hx Gastroesophageal Reflux Disease Musculoskeltal Medical History: Reports Hx Arthritis - generalized - right wrist Psychiatric Medical History: Reports: Hx Anxiety, Hx Depression Past Surgical History: Reports: Hx Appendectomy, Hx Cholecystectomy, Hx Coronary Artery Bypass Graft, Hx Coronary Stent, Hx Hysterectomy. Denies: Hx Pacemaker - Immunizations Immunizations up to date: Yes Hx Diphtheria, Pertussis, Tetanus Vaccination: Yes Doctor's Discharge - Discharge Referrals: SINA ABDUL MD [Primary Care Provider] - Follow up as needed
--- NOTE | 2018-06-06 14:29 | RADIOLOGY REPORT (SQ) ---
EXAM DESCRIPTION: WRIST LEFT 3 VIEWS COMPLETED DATE/TIME: 06/06/2018 2:12 pm REASON FOR STUDY: Injury/deformity fall injury pain, no open wound COMPARISON: None. NUMBER OF VIEWS: Three views. TECHNIQUE: AP, lateral, and oblique radiographic images acquired of the left wrist. LIMITATIONS: None. FINDINGS: MINERALIZATION: osteopenic BONES: Comminuted fracture distal left radius metaphysis with intra-articular extension and dorsal mi ld displacement and angulation of the distal fracture fragments. Comminuted fracture distal left ulna, nonangulated nondisplaced. This involves the ulnar styloid. SOFT TISSUES: Diffuse soft tissue swelling. No foreign body. OTHER: Advanced osteoarthritis at the 1st carpometacarpal joint IMPRESSION: Acute comminuted fractures of the distal left radius and ulna TECHNICAL DOCUMENTATION: JOB ID: [id number] [employer]- All Rights Reserved Reading location - IP/workstation name: [email or web address]
--- NOTE | 2018-06-06 14:31 | RADIOLOGY REPORT (SQ) ---
EXAM DESCRIPTION: FOREARM LEFT COMPLETED DATE/TIME: 06/06/2018 2:13 pm REASON FOR STUDY: Injury/deformity COMPARISON: Left wrist films same date NUMBER OF VIEWS: Two views. TECHNIQUE: Two radiographic images acquired of the left forearm, including elbow and wrist in at macho st one projection. LIMITATIONS: None. FINDINGS: MINERALIZATION: Osteopenic BONES: Comminuted acute distal left radius and ulna fractures with dorsal angulation and displacement of the radius distal fracture fragments and carpal bones. The proximal radius and ulna are intact. Distal humerus intact. SOFT TISSUES: Left wrist soft tissue swelling. No radiopaque foreign body OTHER: No other significant finding. IMPRESSION: Comminuted acute distal left radius and ulna acute fractures with dorsal angulation and displacement of the distal radius fracture fragments and carpal bones TECHNICAL DOCUMENTATION: JOB ID: [id number] [employer]- All Rights Reserved Reading location - IP/workstation name: [email or web address]
[2018-06-06] MEDS ORDERED: BUPIVACAINE HCL 0.5 % INJ/PF 30 ML SDV INJ ONE (15:11)
[2018-06-06] MEDS ORDERED: HYDROMORPHONE HCL INJ/PF 2 MG/ML AMPULE IM ONE (15:12)
--- NOTE | 2018-06-06 16:08 | ER Document Report ---
ED General - General Chief Complaint: Arm Pain Stated Complaint: FALL/ARM PAIN Time Seen by Provider: 06/06/18 13:54 TRAVEL OUTSIDE OF THE [place] IN LAST 30 DAYS: No - HPI Patient complains to provider of: Left wrist pain Notes: Patient coming in after a fall today for left wrist pain. Patient fell on outstretched hands slipping and falling patient denies any other injuries denies any head pain chest pain abdominal pain fevers chills nausea vomiting. Resting healthy upon my evaluation. Obvious deformity to the left wrist. - Related Data Allergies/Adverse Reactions: azithromycin [Azithromycin] Allergy (Mild, Verified 06/06/18 13:47) Hives nalbuphine HCl [From Nubain] Allergy (Mild, Verified 06/06/18 13:47) Hives nitrofurantoin macrocrystalline [From Macrodantin] Allergy (Mild, Verified 06/06 13:47) Hives duloxetine HCl [From Cymbalta] Adverse Reaction (Verified 06/06/18 13:47) Change in behavior Past Medical History - Social History Smoking Status: Never Smoker Family History: Reviewed & Not Pertinent, DM Patient has suicidal ideation: No Patient has homicidal ideation: No - Past Medical History Cardiac Medical History: Reports: Hx Congestive Heart Failure, Hx Coronary Artery Disease - CABG 99, STENT 05, Hx Heart Attack - chest pain , Hx Hypercholesterolemia, Hx Hypertension Pulmonary Medical History: Reports: Hx COPD - [place] PRN , Hx Pneumonia - more than 5 years ago Denies: Hx Asthma, Hx Bronchitis, Hx Tuberculosis Neurological Medical History: Denies: Hx Cerebrovascular Accident, Hx Seizures Endocrine Medical History: Reports: Hx Diabetes Mellitus Type 1, Hx Diabetes Mellitus Type 2 Renal/ Medical History: Denies: Hx Peritoneal Dialysis Malignancy Medical History: Reports: Hx Breast Cancer GI Medical History: Reports: Hx Gastroesophageal Reflux Disease Musculoskeletal Medical History: Reports Hx Arthritis - generalized - right wrist Psychiatric Medical History: Reports: Hx Anxiety, Hx Depression Past Surgical History: Reports: Hx Appendectomy, Hx Cholecystectomy, Hx Coronary Artery Bypass Graft, Hx Coronary Stent, Hx Hysterectomy. Denies: Hx Pacemaker - Immunizations Immunizations up to date: Yes Hx Diphtheria, Pertussis, Tetanus Vaccination: Yes Hx Pneumococcal Vaccination: 09/06/10 Review of Systems - Review of Systems Constitutional: No symptoms reported EENT: No symptoms reported Cardiovascular: No symptoms reported Respiratory: No symptoms reported Gastrointestinal: No symptoms reported Genitourinary: No symptoms reported Female Genitourinary: No symptoms reported Musculoskeletal: Other - Left wrist pain Skin: No symptoms reported Hematologic/Lymphatic: No symptoms reported Neurological/Psychological: No symptoms reported -: Yes All other systems reviewed and negative Physical Exam - Vital signs Vitals: Temp Pulse Resp BP Pulse Ox 98.0 F 59 L 15 120/54 L 92 06/06/18 16:34 06/06/18 16:34 06/06/18 16:34 06/06/18 16:34 06/06/18 16:34 Interpretation: Normal - General General appearance: Appears well, Alert - HEENT Head: Normocephalic, Atraumatic Eyes: Normal Pupils: PERRL - Respiratory Respiratory status: No respiratory distress Chest status: Nontender Breath sounds: Normal Chest palpation: Normal - Cardiovascular Rhythm: Regular Heart sounds: Normal auscultation Murmur: No - Abdominal Inspection: Normal Distension: No distension Bowel sounds: Normal Tenderness: Nontender Organomegaly: No organomegaly - Back Back: Normal, Nontender - Extremities General upper extremity: Tender, Normal color, Normal ROM, Normal temperature. No: Other - Tenderness palpation of the left wrist swelling slight deformity capillary refill intact to the distal finger General lower extremity: Normal inspection, Nontender, Normal color, Normal ROM , Normal temperature, Normal weight bearing. No: Pam's sign - Neurological Neuro grossly intact: Yes Cognition: Normal Orientation: AAOx4 Chad Coma Scale Eye Opening: Spontaneous Chad Coma Scale Verbal: Oriented Chad Coma Scale Motor: Obeys Commands [place] Coma Scale Total: 15 Speech: Normal Motor strength normal: LUE, RUE, LLE, RLE Sensory: Normal - Psychological Associated symptoms: Normal affect, Normal mood - Skin Skin Temperature: Warm Skin Moisture: Dry Skin Color: Normal Course - Re-evaluation Re-evalutation: 06/06/18 22:08 Patient with a distal ulnar radial fracture hematoma block was performed with gentle manipulation of the fracture site for better alignment of the fracture pieces along with splinting. Patient tolerated this well patient was discharged to follow-up with orthopedics. 06/06/18 22:10 Patient on chronic pain management Percocet tens every 6 we will give the patient a prescription for extra 5 mg of oxycodone to take as needed for increased pain due to the new fracture - Vital Signs Vital signs: Temp Pulse Resp BP Pulse Ox 98.0 F 59 L 15 120/54 L 92 06/06/18 16:34 06/06/18 16:34 06/06/18 16:34 06/06/18 16:34 06/06/18 16:34 Procedures - Immobilization Left Wrist Immobilizer type: Sugar tong Performed by: PCT Post-Proc Neuro Vasc Exam: Normal Alignment checked and good: No Discharge - Discharge Clinical Impression: Closed fracture distal radius and ulna Qualifiers: Encounter type: initial encounter Laterality: left Qualified Code(s): S52.502A - Unspecified fracture of the lower end of left radius, initial encounter for closed fracture Condition: Good Disposition: HOME, SELF-CARE Instructions: Fractured Radius and Ulna ([facility]), Sling to be Used ([facility]) Additional Instructions: Please continue your home pain medication regimen as prescribed by her pain medical clinic. She may take an extra 5 of oxycodone as prescribed as needed for the next few days for the fracture. please follow-up with the orthopedic doctor listed on your discharge papers I suggest calling them this afternoon or tomorrow morning to schedule follow-up appointment. Please keep your sling and splint on until you see the orthopedic physician. Return to ER for any worsening of your symptoms. Prescriptions: Oxycodone HCl 5 mg PO Q6 #10 tablet Referrals: SINA ABDUL MD [Primary Care Provider] - Follow up as needed MICKIE WHIPPLE MD [ACTIVE STAFF] - Follow up as needed (Call office this afternoon or tomorrow for follow-up appointment)
[2018-06-06 16:43] VITALS: BP 120/54
== END 2018-06-06 16:44 | disposition home or self-care (01) ==
LOC: ER 13:43
DX: S52.615A Nondisplaced fracture of left ulna styloid process, initial encounter for closed fracture (principal); S52.572A Other intraarticular fracture of lower end of left radius, initial encounter for closed fracture; W01.0XXA Fall on same level from slipping, tripping and stumbling without subsequent striking against object, initial encounter; Y93.E8 Activity, other personal hygiene; I25.10 Atherosclerotic heart disease of native coronary artery without angina pectoris; I10 Essential (primary) hypertension; I25.2 Old myocardial infarction; Z95.5 Presence of coronary angioplasty implant and graft; J44.9 Chronic obstructive pulmonary disease, unspecified; E11.9 Type 2 diabetes mellitus without complications; Z88.1 Allergy status to other antibiotic agents; Z88.5 Allergy status to narcotic agent; Z85.3 Personal history of malignant neoplasm of breast
CPT/HCPCS: 99283; 96372; 73090; 73110; 25605; J3490; J1170; A9270

== ENCOUNTER 2018-06-11 09:52 | Day surgery (SDC) | payer MEDICARE ==
[~2018-06-11 09:52] MED LIST: CEFAZOLIN 2 GM/D5W RTU 2 GM/50 ML RTUPB IV ONE; CEFAZOLIN 2 GM/D5W RTU 2 GM/50 ML RTUPB IV PRN; SUCCINYLCHOLINE CHLORIDE INJ 200 MG/10 ML VIAL ONE
[2018-06-11 10:54] LABS: ABSOLUTE EOSINOPHILS # (AUTO) 0.3 10^3/uL (0.0-0.6); ABSOLUTE LYMPHOCYTES (AUTO) 2.6 10^3/uL (0.5-4.7); ABSOLUTE MONOCYTES (AUTO) 0.8 10^3/uL (0.1-1.4); ABSOLUTE NEUT (AUTO) 2.5 10^3/uL (1.7-8.2); BASOPHILS % (AUTO) 0.5 % (0-2); EOSINOPHILS % (AUTO) 5.2 % (0-6); HEMATOCRIT 31.4 % (36.0-47.0); HEMOGLOBIN 10.4 g/dL (12.0-15.5); LYMPHOCYTES % (AUTO) 41.8 % (13-45); MEAN CORPUSCULAR HEMOGLOBIN 28.7 pg (27.0-33.4); MEAN CORPUSCULAR HGB CONC 33.1 g/dL (32.0-36.0); MEAN CORPUSCULAR VOLUME 87 fl (80-97); MONOCYTES % (AUTO) 12.6 % (3-13); PLATELET COUNT 206 10^3/uL (150-450); RED BLOOD COUNT 3.62 10^6/uL (3.72-5.28); RED CELL DISTRIBUTION WIDTH 14.2 % (11.5-14.0); SEGMENTED NEUTROPHILS % (AUTO) 39.9 % (42-78); TOTAL CELLS COUNTED % (AUTO) 100 %; WHITE BLOOD COUNT 6.2 10^3/uL (4.0-10.5)
--- NOTE | 2018-06-11 10:58 | RADIOLOGY REPORT (SQ) ---
EXAM DESCRIPTION: CHEST SINGLE VIEW COMPLETED DATE/TIME: 06/11/2018 10:46 am REASON FOR STUDY: preop COMPARISON: 01/20/2016 EXAM PARAMETERS: NUMBER OF VIEWS: One view. TECHNIQUE: Single frontal radiographic view of the chest acquired. RADIATION DOSE: NA LIMITATIONS: None. FINDINGS: LUNGS AND PLEURA: No opacities, masses or pneumothorax. No pleural effusion. MEDIASTINUM AND HILAR STRUCTURES: No masses. Contour normal. HEART AND VASCULAR STRUCTURES: Stable moderate to marked cardiomegaly. Old sternotomy and CABG BONES: No acute findings. HARDWARE: Old right mastectomy. Right permanent central line tip superior vena cava OTHER: No other significant finding. IMPRESSION: Stable cardiomegaly No acute findings TECHNICAL DOCUMENTATION: JOB ID: [id number] [employer]- All Rights Reserved Reading location - IP/workstation name: [email or web address]
[2018-06-11 11:28] LABS: ANION GAP 13 (5-19); BLOOD UREA NITROGEN 35 mg/dL (7-20); CALCIUM 9.3 mg/dL (8.4-10.2); CARBON DIOXIDE 26 mmol/L (22-30); CHLORIDE 100 mmol/L (98-107); GLUCOSE 111 mg/dL (75-110); SODIUM 139.2 mmol/L (137-145)
[2018-06-11] MEDS ORDERED: BUPIVACAINE HCL 0.25% /EPINEPHRINE INJ/PF 30 ML SDV ONE (11:35)
[2018-06-11] MEDS ORDERED: FENTANYL CITRATE INJ/PF 250 MCG/5 ML AMPULE ONE (11:44)
[2018-06-11] MEDS ORDERED: ACETAMINOPHEN 1,000 MG/100 ML RTUPB IV ONE (11:45)
[2018-06-11] MEDS ORDERED: DEXAMETHASONE SOD PHOSPHATE INJ 4 MG/1 ML VIAL ONE (11:45)
[2018-06-11] MEDS ORDERED: HYDROMORPHONE HCL INJ/PF 2 MG/ML AMPULE ONE (11:45)
[2018-06-11] MEDS ORDERED: MIDAZOLAM 2 MG/2 ML INJ ONE (11:45)
[2018-06-11] MEDS ORDERED: ONDANSETRON HCL INJ/PF 4 MG/2 ML SDV ONE (11:45)
[2018-06-11] MEDS ORDERED: PROPOFOL INJ 200 MG/20 ML VIAL IV ONE (11:45)
[2018-06-11] MEDS ORDERED: MEPERIDINE HCL/PF INJ 25 MG/1 ML DISP.SYRIN IV PRN (12:28)
[2018-06-11] MEDS ORDERED: PROMETHAZINE HCL INJ 25 MG/1 ML VIAL IV PRN ×2 (12:28)
[2018-06-11] MEDS ORDERED: FENTANYL CITRATE INJ/PF 100 MCG/2 ML AMPUL IV PRN ×3 (12:28)
[2018-06-11] MEDS ORDERED: DIPHENHYDRAMINE HCL 50 MG/ML VIAL IV PRN (12:28)
[2018-06-11] MEDS ORDERED: MORPHINE SULFATE 10 MG/ML INJ IV PRN (12:28)
--- NOTE | 2018-06-11 13:19 | Discharge Summary ---
Discharge Summary (SDC) - Discharge Final Diagnosis: Left distal radius fracture Date of Surgery: 06/11/18 Discharge Date: 06/11/18 Condition: Good Treatment or Instructions: Elevate left upper extremity Prescriptions: Oxycodone HCl/Acetaminophen [Percocet 10-325 mg Tablet] 1 tab PO Q4HP PRN #60 tablet PRN Reason: For Pain Referrals: SINA ABDUL MD [Primary Care Provider] -
--- NOTE | 2018-06-11 13:21 | Operative Report ---
Operative Report DATE OF SURGERY: 06/11/18 PREOPERATIVE DIAGNOSIS: Left distal radius fracture OPERATION: Open reduction internal fixation left distal radius fracture SURGEON: MICKIE WHIPPLE ANESTHESIA: GA ESTIMATED BLOOD LOSS: 50 PROCEDURE: With the patient supine on the operating table left upper extremities prepped and draped in sterile fashion. The limb is elevated for exsanguination tourniquet inflated to 280 torr. A closed manipulation of the distal radius fracture is performed and resulted in a relatively reasonable reduction. A radial styloid pin is placed to hold the fracture. Subsequent anterior approach to the distal radius is performed between the flexor carpi radialis and the radial neurovascular bundle. The pronator quadratus is reflected laterally. The fracture identified. A short Carr[place]le titanium distal volar radial plate is applied and secured with 5 screws distally and 3 screws proximally. Hardware placement and fracture reduction are again checked fluoroscopically and felt to be adequate. At this point the tourniquet is deflated. Hemostasis obtained with bipolar cautery. The wound is irrigated with bulb lavage. Is closed in layers with interrupted Vicryl followed by nylon. A sterile compressive dressing and volar plaster splint were applied and the patient's return to PACU in satisfactory condition.
[2018-06-11] MEDS: FENTANYL CITRATE INJ/PF 100 MCG/2 ML AMPUL ONE ×2 (13:33→13:38)
[2018-06-11] MEDS ORDERED: OXYCODONE-ACETAMINOPHEN 5-325 MG TABLET ONE (14:25)
[2018-06-11] MEDS ORDERED: OXYCODONE-ACETAMINOPHEN 5-325 MG TABLET PO ONE (14:30)
--- NOTE | 2018-06-11 15:21 | RADIOLOGY REPORT (SQ) ---
EXAM DESCRIPTION: NO CHG FLUORO; WRIST LEFT 2 VIEWS COMPLETED DATE/TIME: 06/11/2018 3:09 pm REASON FOR STUDY: ORIF LEFT WRIST ASST WITH FLUORO IN OR COMPARISON: 06/06/2018 FLUOROSCOPY TIME: 41 seconds 5 Images saved to PACS LIMITATIONS: None. PROCEDURE: ORIF left wrist fractures. FINDINGS: Images obtained from fluoro document placement of volar compression plate on the distal ra dius with multiple screws. IMPRESSION: ORIF left wrist fractures. Refer to operative note for further information. COMMENT: PQRS 6045F: Fluoroscopy time of the procedure is documented in the report. TECHNICAL DOCUMENTATION: JOB ID: [id number] [employer]- All Rights Reserved Reading location - IP/workstation name: [email or web address]
--- NOTE | 2018-06-11 15:21 | RADIOLOGY REPORT (SQ) ---
EXAM DESCRIPTION: NO CHG FLUORO; WRIST LEFT 2 VIEWS COMPLETED DATE/TIME: 06/11/2018 3:09 pm REASON FOR STUDY: ORIF LEFT WRIST ASST WITH FLUORO IN OR COMPARISON: 06/06/2018 FLUOROSCOPY TIME: 41 seconds 5 Images saved to PACS LIMITATIONS: None. PROCEDURE: ORIF left wrist fractures. FINDINGS: Images obtained from fluoro document placement of volar compression plate on the distal ra dius with multiple screws. IMPRESSION: ORIF left wrist fractures. Refer to operative note for further information. COMMENT: PQRS 6045F: Fluoroscopy time of the procedure is documented in the report. TECHNICAL DOCUMENTATION: JOB ID: [id number] [employer]- All Rights Reserved Reading location - IP/workstation name: [email or web address]
[2018-06-11 15:45] VITALS: BP 149/61
--- NOTE | 2018-06-11 18:07 | EKG REPORT ---
SEVERITY:- NORMAL ECG - SINUS RHYTHM : Confirmed by: Bhavna Christie MD 11-Jun-2018 18:07:18
--- NOTE | 2018-06-11 18:11 | EKG REPORT ---
SEVERITY:- ABNORMAL ECG - JUNCTIONAL RHYTHM : Confirmed by: Bhavna Christie MD 11-Jun-2018 18:11:01
== END 2018-06-11 15:20 | disposition home or self-care (01) ==
LOC: OROUT 09:52
PROVIDERS: ATTEND Orthopaedic Surgery
DX: S52.502A Unspecified fracture of the lower end of left radius, initial encounter for closed fracture (principal); W19.XXXA Unspecified fall, initial encounter; I11.0 Hypertensive heart disease with heart failure; I50.9 Heart failure, unspecified; E11.9 Type 2 diabetes mellitus without complications; G62.9 Polyneuropathy, unspecified; G47.33 Obstructive sleep apnea (adult) (pediatric); J44.9 Chronic obstructive pulmonary disease, unspecified; E66.3 Overweight; M10.9 Gout, unspecified; I25.2 Old myocardial infarction; Z85.3 Personal history of malignant neoplasm of breast; Z79.899 Other long term (current) drug therapy; Z01.818 Encounter for other preprocedural examination; Z68.26 Body mass index [BMI] 26.0-26.9, adult
CPT/HCPCS: 36415; 85025; 80048; 83036; 71045; 73100; 93005; 93010; 25607; C1713 ×7; J2250; J3490; J1100; J3010; A9270; J1170; J0330; J2405; J2704; J0690; J0131; 01830

== ENCOUNTER → 2018-08-31 | Outpatient (CLI) | payer MEDICARE, OTHER ==
--- NOTE | 2018-08-31 14:42 | RADIOLOGY REPORT (SQ) ---
EXAM DESCRIPTION: CT HEAD WITHOUT COMPLETED DATE/TIME: 08/31/2018 2:28 pm REASON FOR STUDY: R51 HEADACHE W10.8XXS FALL ON FROM OTHER STAIRS AND STEPS W10.8XXS FALL (ON) (FRO M) OTHER STAIRS AND STEPS, SEQUELA R51 HEADACHE COMPARISON: None. TECHNIQUE: Axial images acquired through the brain without intravenous contrast. Images reviewed wi th bone, brain and subdural windows. Additional sagittal and coronal reconstructions were generated. Images stored on PACS. All CT scanners at this facility use dose modulation, iterative reconstruction, and/or weight based d osing when appropriate to reduce radiation dose to as low as reasonably achievable (ALARA). [facility]: Dose Right [facility]: CareDose [facility]: Dose Right [facility]: Teradose 4D [facility]: [employer] RADIATION DOSE: CT Rad equipment meets quality standard of care and radiation dose reduction techniq ues were employed. CTDIvol: 48.5 mGy. DLP: 903 mGy-cm.mGy. LIMITATIONS: None. FINDINGS: VENTRICLES: Prominent. CEREBRUM: No masses. No hemorrhage. No midline shift. Areas of low density in the white matter mos t likely due to chronic micro-vascular ischemic change. No evidence for acute infarction. CEREBELLUM: No masses. No hemorrhage. No alteration of density. No evidence for acute infarction. EXTRAAXIAL SPACES: Age-related involutional change. No fluid collections. No masses. ORBITS AND GLOBE: No intra- or extraconal masses. Normal contour of globe without masses. CALVARIUM: No fracture. PARANASAL SINUSES: No fluid or mucosal thickening. SOFT TISSUES: No mass or hematoma. OTHER: No other significant finding. IMPRESSION: CHRONIC CHANGES OF ATROPHY AND MICROVASCULAR ISCHEMIA. NO ACUTE PROCESS. EVIDENCE OF ACUTE STROKE: NO. TECHNICAL DOCUMENTATION: JOB ID: [id number] Quality ID # 436: Final reports with documentation of one or more dose reduction techniques (e.g., Au tomated exposure control, adjustment of the mA and/or kV according to patient size, use of iterative reconstruction technique) 2010 [employer]- All Rights Reserved Reading location - IP/workstation name: [email or web address]
--- NOTE | 2018-08-31 14:56 | RADIOLOGY REPORT (SQ) ---
EXAM DESCRIPTION: HAND BILATERAL 2 VIEWS COMPLETED DATE/TIME: 08/31/2018 2:06 pm REASON FOR STUDY: M79.641 PAIN IN RIGHT HAND M79.642 PAIN IN LEFT HAND W10.8XXS FALL (ON) (FROM) OT HER STAIRS AND STEPS, SEQUELA R51 HEADACHE COMPARISON: None. EXAM PARAMETERS: NUMBER OF VIEWS: Four views. TECHNIQUE: AP and lateral radiographic images acquired of the right and left hand. LIMITATIONS: None. FINDINGS: Old bilateral distal radial fractures. Old left distal ulnar fracture. Fracture base of right 5th metacarpal with some callus formation. Moderate osteoarthritis multiple interphalangeal marcelo ints and 1st metacarpal base. IMPRESSION: Healing fracture base of right 5th metacarpal. Healed fractures left distal ulna and bi lateral distal radius. TECHNICAL DOCUMENTATION: JOB ID: [id number] [employer]- All Rights Reserved Reading location - IP/workstation name: [email or web address]
== END ==
LOC: RAD 15:36
PROVIDERS: ATTEND Internal Medicine
DX: M19.042 Primary osteoarthritis, left hand (principal); M19.041 Primary osteoarthritis, right hand; M79.641 Pain in right hand; M79.642 Pain in left hand; R51 Headache; W10.8XXS Fall (on) (from) other stairs and steps, sequela; Z87.81 Personal history of (healed) traumatic fracture
CPT/HCPCS: 70450

== ENCOUNTER 2019-12-04 14:40 | Emergency (ER) | payer MEDICARE, OTHER ==
--- NOTE | 2019-12-04 15:19 | ER Document Report ---
ED Medical Screen (RME) - General Stated Complaint: FALL,HEAD,FINGER INJURY Time Seen by Provider: 12/04/19 15:08 Primary Care Provider: NIRAJ BEASLEY MD [Primary Care Provider] - Follow up as needed Mode of Arrival: Wheelchair Information source: Patient Notes: 79-year-old female patient presenting to the emergency department with complaints of fall injury. Patient is unsure how she fell. All she knows that she woke up on the ground after she was walking through her house. She is complaining of head and neck pain as well as left third digit pain. She is alert, oriented, no acute distress noted. Cervical collar placed in triage. I have greeted and performed a rapid initial assessment of this patient. A comprehensive ED assessment and evaluation of the patient, analysis of test results and completion of the medical decision making process will be conducted by additional ED providers. I have specifically instructed the patient or family members with the patient to immediately return to any nursing staff should anything change in the patient's condition or with their chief complaint. TRAVEL OUTSIDE OF THE [place] IN LAST 30 DAYS: No - Related Data Allergies/Adverse Reactions: azithromycin [Azithromycin] Allergy (Mild, Verified 06/11/18 11:00) Hives nalbuphine HCl [From Nubain] Allergy (Mild, Verified 06/11/18 11:00) Hives nitrofurantoin macrocrystalline [From Macrodantin] Allergy (Mild, Verified 06/11/18 11:00) Hives duloxetine HCl [From Cymbalta] Adverse Reaction (Verified 06/11/18 11:00) Change in behavior Past Medical History - Past Medical History Cardiac Medical History: Reports: Hx Congestive Heart Failure, Hx Coronary Artery Disease - CABG 99, STENT 05, HEART VALVE REPLACEMENT (2012), Hx Heart Attack - chest pain , Hx Hypercholesterolemia, Hx Hypertension Pulmonary Medical History: Reports: Hx COPD - [place] PRN , 02 PRN, Hx Pneumonia - more than 5 years ago Denies: Hx Asthma, Hx Bronchitis, Hx Tuberculosis Neurological Medical History: Denies: Hx Cerebrovascular Accident, Hx Seizures Endocrine Medical History: Reports: Hx Diabetes Mellitus Type 1, Hx Diabetes Mellitus Type 2 Renal/ Medical History: Denies: Hx Peritoneal Dialysis Malignancy Medical History: Reports: Hx Breast Cancer GI Medical History: Reports: Hx Gastroesophageal Reflux Disease Musculoskeltal Medical History: Reports Hx Arthritis - generalized - right wrist Psychiatric Medical History: Reports: Hx Anxiety, Hx Depression Past Surgical History: Reports: Hx Appendectomy, Hx Cholecystectomy, Hx Coronary Artery Bypass Graft, Hx Coronary Stent, Hx Hysterectomy. Denies: Hx Pacemaker - Immunizations Immunizations up to date: Yes Hx Diphtheria, Pertussis, Tetanus Vaccination: Yes Physical Exam - Vital signs Vitals: Temp Pulse Resp BP Pulse Ox 98.2 F 71 16 133/89 H 95 12/04/19 14:47 12/04/19 14:47 12/04/19 14:47 12/04/19 14:47 12/04/19 14:47 Course - Vital Signs Vital signs: Temp Pulse Resp BP Pulse Ox 98.2 F 71 16 133/89 H 95 12/04/19 14:47 12/04/19 14:47 12/04/19 14:47 12/04/19 14:47 12/04/19 14:47 Doctor's Discharge - Discharge Referrals: NIRAJ BEASLEY MD [Primary Care Provider] - Follow up as needed
--- NOTE | 2019-12-04 15:44 | RADIOLOGY REPORT (SQ) ---
EXAM DESCRIPTION: CT HEAD WITHOUT IMAGES COMPLETED DATE/TIME: 12/04/2019 3:33 pm REASON FOR STUDY: FALL COMPARISON: 08/31/2018 TECHNIQUE: Axial images acquired through the brain without intravenous contrast. Images reviewed wi th bone, brain and subdural windows. Additional sagittal and coronal reconstructions were generated. Images stored on PACS. All CT scanners at this facility use dose modulation, iterative reconstruction, and/or weight based d osing when appropriate to reduce radiation dose to as low as reasonably achievable (ALARA). [facility]: Dose Right [facility]: CareDose [facility]: Dose Right [facility]: Teradose 4D [facility]: [employer] RADIATION DOSE: CT Rad equipment meets quality standard of care and radiation dose reduction techniq ues were employed. CTDIvol: 22.6 - 53.2 mGy. DLP: 1459 mGy-cm. mGy. LIMITATIONS: None. FINDINGS: VENTRICLES: Age appropriate. CEREBRUM: No masses. No hemorrhage. No midline shift. Areas of low density in the white matter mos t likely due to chronic micro-vascular ischemic change. No evidence for acute infarction. CEREBELLUM: No masses. No hemorrhage. No alteration of density. No evidence for acute infarction. EXTRAAXIAL SPACES: Mild age-related involutional change. No fluid collections. No masses. ORBITS AND GLOBE: No intra- or extraconal masses. Normal contour of globe without masses. Bilateral cataract surgery. CALVARIUM: Hyperostosis frontalis interna. PARANASAL SINUSES: No fluid or mucosal thickening. SOFT TISSUES: Soft tissue swelling along the left frontal calvarium. OTHER: Vascular calcifications. IMPRESSION: MILD CHRONIC CHANGES OF ATROPHY AND MICROVASCULAR ISCHEMIA. NO ACUTE PROCESS. SOFT TISSUE SWELLING ALONG THE LEFT FRONTAL CALVARIUM. NO FRACTURE. EVIDENCE OF ACUTE STROKE: NO. TECHNICAL DOCUMENTATION: JOB ID: [id number] Quality ID # 436: Final reports with documentation of one or more dose reduction techniques (e.g., Au tomated exposure control, adjustment of the mA and/or kV according to patient size, use of iterative reconstruction technique) 2010 [employer]- All Rights Reserved Reading location - IP/workstation name: [email or web address]
--- NOTE | 2019-12-04 15:51 | RADIOLOGY REPORT (SQ) ---
EXAM DESCRIPTION: FINGER LEFT IMAGES COMPLETED DATE/TIME: 12/04/2019 3:40 pm REASON FOR STUDY: LEFT FINGER INJURY COMPARISON: None. NUMBER OF VIEWS: Three views. TECHNIQUE: AP, lateral, and oblique images acquired of the left third finger. LIMITATIONS: None. FINDINGS: MINERALIZATION: Decreased. BONES: Dislocation at the 3rd proximal interphalangeal joint. There is ulnar dislocation of the dist al aspect in relation to the proximal phalanx. No definite fracture. Degenerative changes with join t space loss, osteophytosis and subchondral sclerosis at multiple interphalangeal joints. SOFT TISSUES: Soft tissue swelling about the 3rd digit. No radiopaque foreign body. OTHER: Partially visualized radial fixation hardware. IMPRESSION: Dislocation at the 3rd proximal interphalangeal joint. No definitive fracture. TECHNICAL DOCUMENTATION: JOB ID: [id number] 2010 [employer]- All Rights Reserved Reading location - IP/workstation name: [email or web address]
[2019-12-04] MEDS ORDERED: LIDOCAINE 1% INJ (10 MG/ML) 10 ML MDV INJ ONE (15:59)
[2019-12-04] MEDS ORDERED: BUPIVACAINE HCL 0.5 % INJ/PF 30 ML SDV INJ ONE (15:59)
--- NOTE | 2019-12-04 15:59 | RADIOLOGY REPORT (SQ) ---
EXAM DESCRIPTION: CT CERVICAL SPINE WITHOUT IMAGES COMPLETED DATE/TIME: 12/04/2019 3:33 pm REASON FOR STUDY: FALL COMPARISON: None. TECHNIQUE: Axial images acquired through the cervical spine without intravenous contrast. Images re viewed with lung, soft tissue and bone windows. Reconstructed coronal and sagittal MPR images review ed. Images stored on PACS. All CT scanners at this facility use dose modulation, iterative reconstruction, and/or weight based d osing when appropriate to reduce radiation dose to as low as reasonably achievable (ALARA). [facility]: Dose Right [facility]: CareDose [facility]: Dose Right [facility]: Teradose 4D [facility]: [employer] RADIATION DOSE: mGy. LIMITATIONS: None. FINDINGS: ALIGNMENT: Anatomic. MINERALIZATION: Normal. VERTEBRAL BODIES: No fractures or dislocation. DISCS: Mild multilevel disc height loss greatest at C7-T1. No significant bulky osteophytes. FACETS, LATERAL MASSES, POSTERIOR ELEMENTS: No facet fracture or dislocation. Multilevel facet arthro jessie greatest at C4-5 on the left. [id number]-[id number] neural foraminal narrowing secondary to facet h ypertrophy greatest C2-3 on the right. HARDWARE: None in the spine. VISUALIZED RIBS: No fractures. LUNG APICES AND SOFT TISSUES: No significant or acute findings. OTHER: Vascular calcifications. IMPRESSION: 1. No evidence of acute bony abnormality of the cervical spine. 2. Multilevel degenerative change as above. TECHNICAL DOCUMENTATION: JOB ID: [id number] Quality ID # [id number]: Final reports with documentation of one or more dose reduction techniques (e.g., Au tomated exposure control, adjustment of the mA and/or kV according to patient size, use of iterative reconstruction technique) 2010 [employer]- All Rights Reserved Reading location - IP/workstation name: [email or web address]
--- NOTE | 2019-12-04 16:06 | ER Document Report ---
ED General - General Stated Complaint: FALL,HEAD,FINGER INJURY Time Seen by Provider: 12/04/19 15:08 Primary Care Provider: NIRAJ BEASLEY MD [ACTIVE STAFF] - Follow up as needed SINA ABDUL MD [Primary Care Provider] - Follow up as needed Mode of Arrival: Wheelchair Notes: 79-year-old female presents from home via EMS stating "the floor gave way" causing her to fall. Denies loss of consciousness, states that she felt for give way and remembers laying on the floor. Denies loss of consciousness, admit s neck pain, admits pain to the left side of her head and to her left third finger. He is uncertain of her medical history including whether or not she is on a blood thinner however review of medications reveals 81 mg aspirin daily. Denies difficulty walking. Denies prior episodes similar to this. TRAVEL OUTSIDE OF THE [place] IN LAST 30 DAYS: No - Related Data Allergies/Adverse Reactions: azithromycin [Azithromycin] Allergy (Mild, Verified 06/11/18 11:00) Hives nalbuphine HCl [From Nubain] Allergy (Mild, Verified 06/11/18 11:00) Hives nitrofurantoin macrocrystalline [From Macrodantin] Allergy (Mild, Verified 06/11/18 11:00) Hives duloxetine HCl [From Cymbalta] Adverse Reaction (Verified 06/11/18 11:00) Change in behavior Past Medical History - General Information source: Patient - Social History Smoking Status: Never Smoker Chew tobacco use (# tins/day): No Frequency of alcohol use: None Drug Abuse: None Family History: DM - Past Medical History Cardiac Medical History: Reports: Hx Congestive Heart Failure, Hx Coronary Artery Disease - CABG 99, STENT 05, HEART VALVE REPLACEMENT (2012), Hx Heart Attack - chest pain , Hx Hypercholesterolemia, Hx Hypertension Pulmonary Medical History: Reports: Hx COPD - [place] PRN , 02 PRN, Hx Pneumonia - more than 5 years ago Denies: Hx Asthma, Hx Bronchitis, Hx Tuberculosis Neurological Medical History: Denies: Hx Cerebrovascular Accident, Hx Seizures Endocrine Medical History: Reports: Hx Diabetes Mellitus Type 2 Renal/ Medical History: Denies: Hx Peritoneal Dialysis Malignancy Medical History: Reports: Hx Breast Cancer GI Medical History: Reports: Hx Gastroesophageal Reflux Disease Musculoskeletal Medical History: Reports Hx Arthritis - generalized - right wrist Psychiatric Medical History: Reports: Hx Anxiety, Hx Depression Past Surgical History: Reports: Hx Appendectomy, Hx Cholecystectomy, Hx Coronary Artery Bypass Graft, Hx Coronary Stent, Hx Hysterectomy. Denies: Hx Pacemaker - Immunizations Immunizations up to date: Yes Hx Diphtheria, Pertussis, Tetanus Vaccination: Yes Hx Pneumococcal Vaccination: 09/06/10 Review of Systems - Review of Systems Constitutional: No symptoms reported EENT: No symptoms reported Cardiovascular: No symptoms reported Respiratory: No symptoms reported Musculoskeletal: See HPI Skin: See HPI Neurological/Psychological: No symptoms reported -: Yes All other systems reviewed and negative Physical Exam - Vital signs Vitals: Temp Pulse Resp BP Pulse Ox 98.2 F 71 16 133/89 H 95 12/04/19 14:47 12/04/19 14:47 12/04/19 14:47 12/04/19 14:47 12/04/19 14:47 Interpretation: Normal - Notes Notes: GENERAL: Alert, interacts well. No acute distress. HEAD: Normocephalic, hematoma to the left side of the forehead, superficial abrasion, no laceration. EYES: Pupils equal, round and reactive to light, extraocular movements intact. Ecchymoses noted to the superior aspect of the orbit, no step-offs on the orbital rim. No subconjunctival hemorrhage, no hyphema. ENT: Oral mucosa moist, tongue midline. Nares patent, no nasal septal hematoma, TMs intact. NECK: Immobilized in cervical collar, complaining of pain without movement, trachea midline. LUNGS: Clear to auscultation bilaterally, no wheezes, rales or rhonchi, no respiratory distress. HEART: Regular rate and rhythm, no murmurs, gallops, rubs. ABDOMEN: Soft, nontender, nondistended, bowel sounds present in all 4 quadrants. EXTREMITIES: Moves all 4 extremities spontaneously, 1+ pitting edema to the bilateral lower extremities, radial and dorsalis pedis pulses 2/4 bilaterally. No cyanosis. Obviously deviated PIP joint of the left third digit. Swollen and ecchymotic. NEUROLOGICAL: Alert and oriented x2, does not know the year or who the president is, normal speech, cranial nerves II through XII grossly intact. PSYCH: Normal mood, normal affect. SKIN: Warm, Dry, 1+ pitting edema to the bilateral lower extremities. Course - Re-evaluation Re-evalutation: 12/04/19 21:01 CT scan does not show any hemorrhage or fracture, CT scan of the neck also does not show any fracture. Patient's left finger does have a obvious deformity that on x-ray shows a dislocation but no fracture, postreduction it did show fracture so this was splinted. Patient then complained of right leg and hip pain, she was able to ambulate in and ambulate at home, x-rays were taken and no fracture was seen. CBC shows slight anemia, CMP shows some chronic kidney disease that is already known, troponin negative, urinalysis shows moderate leukocyte esterase, 3+ bacteria and no squamous epithelial cells, this was sent for culture and will be treated as asymptomatic bacteriuria in the elderly though it could be colonization could also cause increased confusion and falls. Patient will be treated with Keflex. Patient will be discharged home. - Vital Signs Vital signs: Temp Pulse Resp BP Pulse Ox 98.2 F 71 12 129/67 H 96 12/04/19 14:47 12/04/19 14:47 12/04/19 20:27 12/04/19 20:27 12/04/19 20:27 - Laboratory Result Diagrams: 12/04/19 16:15 12/04/19 16:15 Laboratory results interpreted by me: 12/04/19 12/04/19 12/04/19 16:15 16:15 16:22 Hgb 11.5 L Hct 34.5 L RDW 15.3 H Sodium 136.3 L Chloride 97 L BUN 34 H Creatinine 1.97 H Est GFR ( Amer) 30 L Est GFR (MDRD) Non-Af 24 L Glucose 160 H Urine Blood SMALL H Ur Leukocyte Esterase MODERATE H - EKG Interpretation by Me Additional EKG results interpreted by me: 12/04/19 21:02 EKG shows sinus rhythm at a rate of 81, prolonged QT, no ST segment elevations or depressions, 1 PVC, interventricular conduction delay, no T wave inversions per my interpretation. Procedures - Immobilization left 3rd finger Pre-Proc Neuro Vasc Exam: Normal Immobilizer type: Finger splint (Static) Performed by: Provider assisted, RN Post-Proc Neuro Vasc Exam: Normal, Unchanged from pre-exam Alignment checked and good: Yes - Joint Reduction/Fracture Care left third finger PIP joint Time completed: 17:45 Consent obtained: Yes Conscious sedation: No Pre-procedure NV exam: Yes - Unable to bend finger, sensation intact Fracture: Other - Dislocation, no fracture initially seen, fx seen post- reduction Post-procedure NV exam: Yes - Sensation intact Post-reduction x-ray: Joint reduced - Fracture seen postreduction. Reduction attempts: 1 Complications: No Notes: 12/04/19 17:54 Numbed using digital block at base of third finger using 50/50 mix of 1% lidocaine and 0.5% bupivacaine, 2 mL's. 12/04/19 17:54 Discharge - Discharge Clinical Impression: Closed fracture dislocation of proximal interphalangeal joint, fracture di slocation pip joint Lt 3rd finger, Acute right hip pain Fall at home Qualifiers: Encounter type: initial encounter Qualified Code(s): W19.XXXA - Unspecified fall, initial encounter; Y92.009 - Unspecified place in unspecified non- institutional (private) residence as the place of occurrence of the external cause Hematoma of frontal scalp Qualifiers: Encounter type: initial encounter Qualified Code(s): S00.03XA - Contusion of scalp, initial encounter UTI (urinary tract infection) Qualifiers: Urinary tract infection type: acute cystitis Hematuria presence: without he maturia Qualified Code(s): N30.00 - Acute cystitis without hematuria Condition: Stable Disposition: HOME, SELF-CARE Additional Instructions: You have a large bruise on your forehead from your fall, but the only thing you broke was your finger. You do not have any bleeding in your brain and you do not have a broken neck or a broken leg or broken hip. Your left finger was dislocated and had a small fracture we could not see until we reduced the fracture. You were placed in a splint and you need to leave the splint on for the next 2 weeks and follow-up with orthopedics in the next week to discuss how much longer they want you to keep the splint on. Please return for worsening confusion, vomiting, inability to wake up or any new or concerning symptoms. You also have a slight urinary tract infection, this can increase confusion and your risk of fall so am treating her urinary tract infection with antibiotics. Please take them as directed until gone. Prescriptions: Cephalexin Monohydrate [Keflex 500 mg Capsule] 500 mg PO BID #10 capsule Referrals: NIRAJ BEASLEY MD [ACTIVE STAFF] - Follow up as needed SINA ABDUL MD [Primary Care Provider] - Follow up as needed ANKIT LAW JR, DO [ACTIVE PROVISIONAL STAFF] - Follow up as needed
[2019-12-04 16:41] LABS: ABSOLUTE BASOPHILS # (AUTO) 0.1 10^3/uL (0.0-0.2); ABSOLUTE EOSINOPHILS # (AUTO) 0.3 10^3/uL (0.0-0.6); ABSOLUTE LYMPHOCYTES (AUTO) 2.7 10^3/uL (0.5-4.7); ABSOLUTE MONOCYTES (AUTO) 0.9 10^3/uL (0.1-1.4); ABSOLUTE NEUT (AUTO) 6.5 10^3/uL (1.7-8.2); BASOPHILS % (AUTO) 0.5 % (0-2); EOSINOPHILS % (AUTO) 2.5 % (0-6); HEMATOCRIT 34.5 % (36.0-47.0); HEMOGLOBIN 11.5 g/dL (12.0-15.5); LYMPHOCYTES % (AUTO) 25.7 % (13-45); MEAN CORPUSCULAR HEMOGLOBIN 28.6 pg (27.0-33.4); MEAN CORPUSCULAR HGB CONC 33.2 g/dL (32.0-36.0); MEAN CORPUSCULAR VOLUME 86 fl (80-97); MONOCYTES % (AUTO) 8.8 % (3-13); PLATELET COUNT 204 10^3/uL (150-450); RED CELL DISTRIBUTION WIDTH 15.3 % (11.5-14.0); SEGMENTED NEUTROPHILS % (AUTO) 62.5 % (42-78); TOTAL CELLS COUNTED % (AUTO) 100 %; WHITE BLOOD COUNT 10.3 10^3/uL (4.0-10.5)
[2019-12-04 16:41] LABS: APPEARANCE,URINE SLIGHTLY-CLOUDY; BILIRUBIN,URINE NEGATIVE (NEGATIVE); COLOR,URINE YELLOW; GLUCOSE, URINE NEGATIVE (NEGATIVE); KETONES,URINE NEGATIVE (NEGATIVE); LEUKOCYTE ESTERASE,URINE MODERATE (NEGATIVE); NITRITE,URINE NEGATIVE (NEGATIVE); PROTEIN,URINE NEGATIVE (NEGATIVE); URINE SPECIFIC GRAVITY 1.006; UROBILINOGEN,URINE NEGATIVE mg/dL (<2.0)
[2019-12-04 17:03] LABS: ALBUMIN 4.5 g/dL (3.5-5.0); ALKALINE PHOSPHATASE 94 U/L (38-126); ANION GAP 9 (5-19); ASPARTATE AMINO TRANSFERASE 21 U/L (14-36); BILIRUBIN,DIRECT 0.3 mg/dL (0.0-0.4); BILIRUBIN,TOTAL 0.5 mg/dL (0.2-1.3); BLOOD UREA NITROGEN 34 mg/dL (7-20); CALCIUM 9.9 mg/dL (8.4-10.2); CARBON DIOXIDE 30 mmol/L (22-30); CHLORIDE 97 mmol/L (98-107); GLUCOSE 160 mg/dL (75-110); POTASSIUM 4.6 mmol/L (3.6-5.0); TOTAL PROTEIN 7.8 g/dL (6.3-8.2)
--- NOTE | 2019-12-04 18:38 | RADIOLOGY REPORT (SQ) ---
EXAM DESCRIPTION: FINGER LEFT IMAGES COMPLETED DATE/TIME: 12/04/2019 5:18 pm REASON FOR STUDY: 3rd digit, post-reduction COMPARISON: None. NUMBER OF VIEWS: Three views. TECHNIQUE: AP, lateral, and oblique images acquired of the left 3rd digit seen there LIMITATIONS: None. FINDINGS: MINERALIZATION: Osteopenia. BONES: There is an acute dislocation at the proximal interphalangeal joint space at the 3rd digit wit h ulnar dislocation of the middle phalanx. Probable nondisplaced fracture at the proximal articular surface of the middle phalanx. No acute displaced fracture fragment. Remaining digits have normal a lignment with mild osteoarthritis. SOFT TISSUES: No soft tissue swelling. No foreign body. OTHER: No other significant finding. IMPRESSION: Acute dislocation at the proximal interphalangeal joint space of the 3rd digit. Probabl e nondisplaced intra-articular fracture at the proximal aspect middle phalanx. TECHNICAL DOCUMENTATION: JOB ID: [id number] 2010 [employer]- All Rights Reserved Reading location - IP/workstation name: [email or web address]
--- NOTE | 2019-12-04 18:39 | RADIOLOGY REPORT (SQ) ---
EXAM DESCRIPTION: FEMUR RIGHT IMAGES COMPLETED DATE/TIME: 12/04/2019 5:18 pm REASON FOR STUDY: fell, pain COMPARISON: None. NUMBER OF VIEWS: Two views. TECHNIQUE: Two radiographic images acquired of the right femur to include hip and knee in at least o ne projection. LIMITATIONS: None. FINDINGS: MINERALIZATION: Osteopenia. BONES: No acute fracture. No worrisome bone lesions. SOFT TISSUES: No obvious swelling or foreign body. OTHER: No other significant finding. IMPRESSION: NEGATIVE STUDY OF THE RIGHT FEMUR. NO RADIOGRAPHIC EVIDENCE OF ACUTE INJURY. TECHNICAL DOCUMENTATION: JOB ID: [id number] 2010 [employer]- All Rights Reserved Reading location - IP/workstation name: [email or web address]
--- NOTE | 2019-12-04 18:40 | RADIOLOGY REPORT (SQ) ---
EXAM DESCRIPTION: PELVIS AP IMAGES COMPLETED DATE/TIME: 12/04/2019 5:18 pm REASON FOR STUDY: fell, pain COMPARISON: None. NUMBER OF VIEWS: One view TECHNIQUE: AP Pelvis LIMITATIONS: None. FINDINGS: MINERALIZATION: Normal. HIPS: No acute fracture or dislocation. No worrisome bone lesions. PELVIS AND SACRUM: No acute fracture or dislocation. No worrisome bone lesions. PUBIS AND ISCHIUM: No acute fracture. LOWER LUMBAR SPINE: No significant findings as visualized. SOFT TISSUES: Dystrophic calcifications in the plaques bilaterally probably injection granulomas. OTHER: No other significant finding. IMPRESSION: No acute fracture or dislocation of the pelvis. TECHNICAL DOCUMENTATION: JOB ID: [id number] 2010 [employer]- All Rights Reserved Reading location - IP/workstation name: [email or web address]
--- NOTE | 2019-12-04 18:41 | RADIOLOGY REPORT (SQ) ---
EXAM DESCRIPTION: KNEE RIGHT 3 VIEWS IMAGES COMPLETED DATE/TIME: 12/04/2019 5:18 pm REASON FOR STUDY: fell, pain COMPARISON: None. NUMBER OF VIEWS: 3 views. TECHNIQUE: AP, cross-table lateral, and sunrise radiographic images acquired of the right knee. LIMITATIONS: None. FINDINGS: MINERALIZATION: Osteopenia. BONES: No acute fracture or cortical disruption. Small marginal osteophytes. JOINT: No joint effusion. No intra-articular loose body. SOFT TISSUES: No soft tissue swelling. No radio-opaque foreign body. OTHER: No other significant finding. IMPRESSION: No acute fracture or dislocation of the right knee. Moderate tricompartmental osteoarth ritis. TECHNICAL DOCUMENTATION: JOB ID: [id number] 2010 [employer]- All Rights Reserved Reading location - IP/workstation name: [email or web address]
[2019-12-04 21:41] VITALS: BP 127/62
--- NOTE | 2019-12-05 09:28 | EKG REPORT ---
SEVERITY:- ABNORMAL ECG - SINUS RHYTHM VPC PROLONGED QT INTERVAL : Confirmed by: Karsten Jimenez 05-Dec-2019 09:27:46
== END 2019-12-04 21:20 | disposition home or self-care (01) ==
LOC: ER 14:40
DX: S62.613A Displaced fracture of proximal phalanx of left middle finger, initial encounter for closed fracture (principal); S00.10XA Contusion of unspecified eyelid and periocular area, initial encounter; S00.83XA Contusion of other part of head, initial encounter; S00.91XA Abrasion of unspecified part of head, initial encounter; R51 Headache; M54.2 Cervicalgia; M79.604 Pain in right leg; M25.551 Pain in right hip; W01.0XXA Fall on same level from slipping, tripping and stumbling without subsequent striking against object, initial encounter; Y92.009 Unspecified place in unspecified non-institutional (private) residence as the place of occurrence of the external cause; N30.00 Acute cystitis without hematuria; I12.9 Hypertensive chronic kidney disease with stage 1 through stage 4 chronic kidney disease, or unspecified chronic kidney disease; E11.22 Type 2 diabetes mellitus with diabetic chronic kidney disease; N18.9 Chronic kidney disease, unspecified; R60.0 Localized edema; J44.9 Chronic obstructive pulmonary disease, unspecified; I25.10 Atherosclerotic heart disease of native coronary artery without angina pectoris; Z95.5 Presence of coronary angioplasty implant and graft; Z95.2 Presence of prosthetic heart valve; Z79.82 Long term (current) use of aspirin; Z88.1 Allergy status to other antibiotic agents; Z88.6 Allergy status to analgesic agent; Z88.5 Allergy status to narcotic agent; S00.03XA Contusion of scalp, initial encounter
CPT/HCPCS: 93005; 99284; 36415; 87086; 85025; 87088; 80053; 81001; 84484; 73552; 73140; 73562; 72170; 70450; 72125; 93010; 26742; J3490; 87186